=== PATIENT | female | born 1985 | race Caucasian/White ===

== ENCOUNTER 2024-11-21 08:31 | Emergency (ER) | payer BC, SELFPAY ==
--- NOTE | ~2024-11-21 | CT_ITS ---
EXAMINATION: CT brain wo con DATE: 11/21/2024 10:32 INDICATION: Headache. TECHNIQUE: Computed tomography (CT) of the head was performed without intravenous contrast. The mA wa s adjusted according to patient size. Iterative reconstruction technique was employed. The dose-lengt h product was 605.33 mGy-cm. COMPARISON: None FINDINGS: There is no intracranial hemorrhage, acute infarction, or abnormal intracranial mass lesion . The ventricles are normal in size. The orbits are normal. The paranasal sinuses are clear. The mast oid air cells are normal. IMPRESSION: 1. Normal brain. Reviewed, dictated and finalized at location A. M CONDITIONER OPERATOR IMPRESSION: 1. Normal brain.
[2024-11-21 08:44] VITALS: BP 162/90; PULSE 69; RESP 12; TEMP 36.6; O2SAT 100
--- OUTSIDE RECORDS SUMMARY | 2024-11-21 08:49 | XMS_ITS | Patient Health Summary ---
Author Organization [facility] Address [address] [place] [address] Care Team Providers Care Oil Painter Name Role Phone Kathryn Redmond MD Primary Care Provider [phone] Note from [facility],non-owned Affiliates and Associated Physician Practices is amultiple site organization consisting of ambulatory clinics and hospital sitesin [place], [place], [place] and [place]. This disclosure is being madepursuant to the Care Everywhere program and may not contain all information available regarding this patient. Last updated 18.[facility] Allergies * Sulfa Drugs(Urticaria) Medications * Be aware that medications may not be up to date on this document. Alwaysverify current medications with the patient. * NIFEdipine CR 24hr (ADALAT CC) 30 MG tablet(Started 04/24/2014) Take 1 Tab by mouth once daily. Take on an empty stomach. 5 refills left * escitalopram (LEXAPRO) 20 MG tablet Take 20 mg by mouth once daily Active Problems Problem Noted Date Diagnosed Date 08/04/2017 Elevated blood pressure affe cting in third trimester, antepartum 08/02/2017 Maternal chronic hypertension 04/22/2014 Left hydronephrosis 04/22/2014 Loss or of child 04/22/2014 Hx of multiple organ failure 04/22/2014 Obesity complicating 04/22/2014 Supervision of high-risk 02/05/2014 History of pre-eclampsia in prior , currently 02/05/2014 History of delivery, currently 02/05/2014 S/P section Maternal obesity, delivered, current hospitaliza tion Hypertension in , preeclampsia, deliver ed Resolved Problems Problem Noted Date Diagnosed Date Resolved Date Threatened premature labor, antepartum 07/30/2009 04/22/2014 Immunizations * INFLUENZA VACCINE(Given 06/18/2017) * TDAP (7yrs+)(Given 06/18/2017) Social History Tobacco Use Types Packs/Day Years Used Date Smoking Tobacco: Never Smokeless Tobacco: Never Tobacco Cessation:Counseling Given: No Alcohol Use Standard Drinks/Week Comments No 0 (1 standard drink = 0.6 oz pur e alcohol) Sex and Gender Information Value Date Recorded Sex Assigned at Not on file Gender Identity Not on file Sexual Orientation Not on file Last Filed Vital Signs Vital Sign Reading Time Taken Comments Blood Pressure 120/80 03/13/2019 11:22 AM CDT Pulse 88 03/13/2019 11:22 AM CDT Temperature 37.3 C (99.2 F) 03/13/2019 11:22 AM CDT Respiratory Rate 16 03/13/2019 11:22 AM CDT Oxygen Saturation 97% 03/13/2019 11:22 AM CDT Inhaled Oxygen Concentration - - Weight 98.9 kg (218 lb) 03/13/2019 11:22 AM CDT Height 160 cm (5' 3 ) 03/13/2019 11:22 AM CDT Body Mass Index 38.62 03/13/2019 11:22 AM CDT Procedures * STREP A SCREEN - POINT OF CARE (AMB) STL(Performed 03/13/2019) Performed for Strep throat * IMAGING/RADIOLOGY/XRAY RESULTS ORDER(Performed 08/07/2017) * GLUCOSE - POINT OF CARE(Performed 08/06/2017) * GLUCOSE - POINT OF CARE(Performed 08/05/2017) * GLUCOSE - POINT OF CARE(Performed 08/05/2017) * CBC W AUTO DIFFERENTIAL(Performed 08/05/2017) * NEURAXIAL BLOCK(Performed 08/04/2017) * BLOOD GASES CORD ROSALIO (ISTAT)(Performed 08/04/2017) * BLOOD GASES CORD ART (ISTAT)(Performed 08/04/2017) * PATHOLOGY TISSUE EXAM (STL)(Performed 08/04/2017) Performed for Diagnosis unknown * GLUCOSE - POINT OF CARE(Performed 08/04/2017) * TYPE + SCREEN PANEL(Performed 08/04/2017) * COMPREHENSIVE METABOLIC PANEL(Performed 08/04/2017) * CBC W AUTO DIFFERENTIAL(Performed 08/04/2017) * GLUCOSE - POINT OF CARE(Performed 08/04/2017) * CULTURE STREP B(Performed 08/04/2017) * URINALYSIS - POINT OF CARE (AMB) SLU(Performed 08/04/2017) * NON-STRESS TEST(Performed 08/02/2017) Performed for Elevated blood pressure affecting in third trimester, antepartum ([facility]) * URINE MICROSCOPIC ONLY REFLEX TO CULTURE(Performed 08/02/2017) Performed for Elevated blood pressure affecting in third trimester, antepartum ([facility]) * COMPREHENSIVE METABOLIC PANEL(Performed 08/02/2017) Performed for Elevated blood pressure affecting in third trimester, antepartum ([facility]) * CBC W AUTO DIFFERENTIAL(Performed 08/02/2017) Performed for Elevated blood pressure affecting in third trimester, antepartum ([facility]) * URINALYSIS REFLEX MICROSCOPIC REFLEX CULTURE(Performed 08/02/2017) Performed for Elevated blood pressure affecting in third trimester, antepartum ([facility]) * PROTEIN CREATININE RATIO URINE RANDOM PNL(Performed 08/02/2017) Performed for Elevated blood pressure affecting in third trimester, antepartum ([facility]) * CULTURE URINE(Performed 08/02/2017) Performed for Elevated blood pressure affecting in third trimester, antepartum ([facility]) * CULTURE URINE(Performed 07/24/2017) * CBC W AUTO DIFFERENTIAL(Performed 07/24/2017) * COMPREHENSIVE METABOLIC PANEL(Performed 07/24/2017) * URIC ACID BLOOD(Performed 07/24/2017) * URINALYSIS - POINT OF CARE (AMB) SLU(Performed 07/24/2017) * CBC W AUTO DIFFERENTIAL(Performed 07/11/2017) * URINALYSIS - POINT OF CARE (AMB) SLU(Performed 07/11/2017) * URINALYSIS - POINT OF CARE (AMB) SLU(Performed 06/27/2017) * URINALYSIS - POINT OF CARE (AMB) SLU(Performed 06/13/2017) * URINALYSIS - POINT OF CARE (AMB) SLU(Performed 05/19/2017) * NONSTRESS TEST(Performed 05/15/2017) * URINALYSIS REFLEX MICROSCOPIC REFLEX CULTURE(Performed 05/14/2017) Performed for Supervision of high-risk , third trimester ([facility]) * GLUCOSE TOLERANCE TEST 4 SPECIMENS(Performed 04/25/2017) * URINALYSIS - POINT OF CARE (AMB) SLU(Performed 04/21/2017) * HEMOGLOBIN A1C(Performed 04/14/2017) * GLUCOSE CHALLENGE(Performed 04/14/2017) * URINALYSIS - POINT OF CARE (AMB) SLU(Performed 03/22/2017) * PROTEIN CREATININE RATIO URINE TIMED PNL(Performed 02/23/2017) * CREATININE CLEARANCE URINE TIMED + BLOOD(Performed 02/23/2017) * TSH+FREE T4 PANEL(Performed 02/23/2017) * COMPREHENSIVE METABOLIC PANEL(Performed 02/23/2017) * PROFILE I W/ HBSAG(Performed 02/23/2017) * HIV-1 HIV-2 ANTIGEN/ANTIBODY(Performed 02/23/2017) * CHLAMYDIA+GC MAMI PAP VIAL(Performed 02/22/2017) * URINALYSIS - POINT OF CARE (AMB) SLU(Performed 02/21/2017) * PROLACTIN(Performed 09/16/2016) * PAP IMAGE-GUIDED W HPV(Performed 09/16/2016) * PATHOLOGY/GENETICS HISTORICAL-ONBASE(Performed 09/16/2016) * IMAGING/RADIOLOGY/XRAY RESULTS ORDER(Performed 02/28/2015) * HCG URINE QUALITATIVE - POCT (IP) [facility]H(Performed 06/18/2014) * IMAGING/RADIOLOGY/XRAY RESULTS ORDER(Performed 05/10/2014) * HGB HCT PANEL(Performed 05/08/2014) * BLOOD GASES CORD ART (ISTAT)(Performed 05/07/2014) * PATHOLOGY TISSUE EXAM (STL)(Performed 05/07/2014) Performed for Supervision of high-risk , third trimester (HCC), History of pre-eclampsia in prior , currently , third trimester (HCC), Maternal chronic hypertension, unspecified trimester (HCC), Left hydronephrosis, Loss or of child, Hx of multiple organ failure, Obesity complicating ([facility]) * NEURAXIAL BLOCK(Performed 05/07/2014) * TYPE + SCREEN PANEL(Performed 05/06/2014) * URIC ACID BLOOD(Performed 05/06/2014) * LDH BLOOD(Performed 05/06/2014) * COMPREHENSIVE METABOLIC PANEL(Performed 05/06/2014) * CBC W AUTO DIFFERENTIAL(Performed 05/06/2014) * URINALYSIS - POINT OF CARE (AMB) SLU(Performed 05/06/2014) * GLUCOSE PROTEIN KETONE URINE - POINT OF CAR(Performed 05/01/2014) * CULTURE STREP B(Performed 04/29/2014) * URINALYSIS - POINT OF CARE (AMB) SLU(Performed 04/29/2014) * TYPE + SCREEN PANEL(Performed 04/28/2014) * LDH BLOOD(Performed 04/28/2014) Performed for Supervision of high-risk , third trimester ([facility]) * URIC ACID BLOOD(Performed 04/28/2014) Performed for Supervision of high-risk , third trimester ([facility]) * COMPREHENSIVE METABOLIC PANEL(Performed 04/28/2014) Performed for Supervision of high-risk , third trimester ([facility]) * CBC W AUTO DIFFERENTIAL(Performed 04/28/2014) Performed for Supervision of high-risk , third trimester ([facility]) * PROTEIN CREATININE RATIO URINE RANDOM PNL(Performed 04/28/2014) Performed for Supervision of high-risk , third trimester ([facility]) * GLUCOSE PROTEIN KETONE URINE - POINT OF CAR(Performed 04/27/2014) * URINALYSIS REFLEX MICROSCOPIC REFLEX CULTURE(Performed 04/27/2014) Performed for Supervision of high-risk , third trimester ([facility]) * CULTURE URINE(Performed 04/27/2014) Performed for Supervision of high-risk , third trimester ([facility]) * LAB RESULTS ORDER(Performed 04/25/2014) * LAB RESULTS ORDER(Performed 04/25/2014) * CREATININE CLEARANCE URINE TIMED + BLOOD(Performed 04/23/2014) Performed for Supervision of high-risk , third trimester ([facility]) * CREATININE URINE TIMED(Performed 04/23/2014) Performed for Supervision of high-risk , third trimester ([facility]) * PROTEIN URINE TIMED QUANTITATIVE(Performed 04/23/2014) Performed for Supervision of high-risk , third trimester ([facility]) * PROTEIN CREATININE RATIO URINE TIMED PNL(Performed 04/23/2014) Performed for Supervision of high-risk , third trimester ([facility]) * SONOGRAM - COMPLETE(Performed 04/23/2014) * URINE MICROSCOPIC ONLY REFLEX TO CULTURE(Performed 04/22/2014) Performed for Supervision of high-risk , third trimester ([facility]) * URINALYSIS REFLEX MICROSCOPIC REFLEX CULTURE(Performed 04/22/2014) Performed for Supervision of high-risk , third trimester ([facility]) * CULTURE URINE(Performed 04/22/2014) Performed for Supervision of high-risk , third trimester ([facility]) * TYPE + SCREEN PANEL(Performed 04/22/2014) * URIC ACID BLOOD(Performed 04/22/2014) Performed for Supervision of high-risk , third trimester ([facility]) * LDH BLOOD(Performed 04/22/2014) Performed for Supervision of high-risk , third trimester ([facility]) * COMPREHENSIVE METABOLIC PANEL(Performed 04/22/2014) Performed for Supervision of high-risk , third trimester ([facility]) * CBC W AUTO DIFFERENTIAL(Performed 04/22/2014) Performed for Supervision of high-risk , third trimester ([facility]) * URINALYSIS - POINT OF CARE (AMB) SLU(Performed 04/22/2014) * URINALYSIS REFLEX MICROSCOPIC REFLEX CULTURE(Performed 04/19/2014) Performed for History of pre-eclampsia in prior , currently , third trimester ([facility]) * CULTURE URINE(Performed 04/19/2014) Performed for History of pre-eclampsia in prior , currently , third trimester ([facility]) * GLUCOSE PROTEIN KETONE URINE - POINT OF CAR(Performed 04/19/2014) Performed for History of pre-eclampsia in prior , currently , third trimester ([facility]) * PROTEIN CREATININE RATIO URINE RANDOM PNL(Performed 04/19/2014) Performed for History of pre-eclampsia in prior , currently , third trimester ([facility]) * LDH BLOOD(Performed 04/19/2014) Performed for History of pre-eclampsia in prior , currently , third trimester ([facility]) * URIC ACID BLOOD(Performed 04/19/2014) Performed for History of pre-eclampsia in prior , currently , third trimester ([facility]) * COMPREHENSIVE METABOLIC PANEL(Performed 04/19/2014) Performed for History of pre-eclampsia in prior , currently , third trimester ([facility]) * CBC W AUTO DIFFERENTIAL(Performed 04/19/2014) Performed for History of pre-eclampsia in prior , currently , third trimester ([facility]) * GLUCOSE PROTEIN KETONE URINE - POINT OF CAR(Performed 04/19/2014) Performed for Hypertension * PROTEIN CREATININE RATIO URINE TIMED PNL(Performed 04/18/2014) * COMPREHENSIVE METABOLIC PANEL(Performed 04/18/2014) * CBC W AUTO DIFFERENTIAL(Performed 04/18/2014) * URIC ACID BLOOD(Performed 04/18/2014) * CREATININE CLEARANCE URINE TIMED + BLOOD(Performed 04/18/2014) * URINALYSIS - POINT OF CARE (AMB) SLU(Performed 04/15/2014) * URINALYSIS - POINT OF CARE (AMB) SLU(Performed 04/08/2014) * URINALYSIS - POINT OF CARE (AMB) SLU(Performed 03/25/2014) * URINALYSIS - POINT OF CARE (AMB) SLU(Performed 03/11/2014) * CBC W AUTO DIFFERENTIAL(Performed 02/25/2014) * GLUCOSE CHALLENGE(Performed 02/25/2014) * URINALYSIS - POINT OF CARE (AMB) SLU(Performed 02/25/2014) * URINALYSIS - POINT OF CARE (AMB) SLU(Performed 02/11/2014) * LDH BLOOD(Performed 02/05/2014) Performed for Hypertension * URIC ACID BLOOD(Performed 02/05/2014) Performed for Hypertension * COMPREHENSIVE METABOLIC PANEL(Performed 02/05/2014) Performed for Hypertension * CBC W AUTO DIFFERENTIAL(Performed 02/05/2014) Performed for Hypertension * URINALYSIS REFLEX MICROSCOPIC REFLEX CULTURE(Performed 02/05/2014) Performed for Hypertension * PROTEIN CREATININE RATIO URINE RANDOM PNL(Performed 02/05/2014) Performed for Hypertension * CULTURE URINE(Performed 02/05/2014) Performed for Hypertension * URINALYSIS - POINT OF CARE (AMB) SLU(Performed 12/31/2013) * URINALYSIS - POINT OF CARE (AMB) SLU(Performed 12/17/2013) * GLUCOSE CHALLENGE(Performed 12/13/2013) * URINALYSIS - POINT OF CARE (AMB) SLU(Performed 12/06/2013) * COMPREHENSIVE METABOLIC PANEL(Performed 12/02/2013) * PROTEIN CREATININE RATIO URINE TIMED PNL(Performed 12/02/2013) * HIV-1 HIV-2 ANTIBODIES W RFLX REFLEXED(Performed 12/02/2013) * PROFILE I W/ HBSAG(Performed 12/02/2013) * CREATININE URINE TIMED(Performed 12/02/2013) * IMAGING/RADIOLOGY/XRAY RESULTS ORDER(Performed 09/04/2009) * LAB RESULTS ORDER(Performed 08/05/2009) * CBC W AUTO DIFFERENTIAL(Performed 08/01/2009) Performed for [facility] * GROSS + MICRO EXAM(Performed 07/31/2009) * GROSS + MICRO EXAM(Performed 07/31/2009) Performed for [facility] * GLUCOSE FLUID(Performed 07/30/2009) * LS RATIO AMNIOTIC FLUID(Performed 07/30/2009) * LUNG MATURITY(Performed 07/30/2009) * CULTURE FLUID(Performed 07/30/2009) Performed for [facility] * CULTURE ANAEROBE(Performed 07/30/2009) Performed for [facility] * DRUG SCREEN URINE TRIAGE PANEL(Performed 07/29/2009) Performed for [facility] * CULTURE URINE(Performed 07/29/2009) Performed for [facility] * URINALYSIS REFLEX TO MICROSCOPIC NO CULTURE(Performed 07/29/2009) Performed for [facility] * CREATININE CLEARANCE URINE TIMED + BLOOD(Performed 07/29/2009) Performed for [facility] * PROTEIN URINE TIMED QUANTITATIVE(Performed 07/29/2009) Performed for [facility] * TYPE + SCREEN PANEL(Performed 07/29/2009) Performed for [facility] * CHLAMYDIA + GC AMPLIFIED PROBE(Performed 07/29/2009) Performed for [facility] * CULTURE STREP B(Performed 07/29/2009) Performed for [facility] * URIC ACID BLOOD(Performed 07/29/2009) Performed for [facility] * LDH BLOOD(Performed 07/29/2009) Performed for [facility] * CBC W AUTO DIFFERENTIAL(Performed 07/29/2009) Performed for [facility] * COMPREHENSIVE METABOLIC PANEL(Performed 07/29/2009) Performed for [facility] * SECTION (EMERGENCY) Performed for Breech presentation Results * (ABNORMAL) STREP A SCREEN (03/13/2019) Strep A Rapid POCT Positive(A) Negative Strep A Internal Control Present Lot # [id number] Expiration Date 08/17/20 Throat ENTIRE THROAT (SURFACE REGION OF NECK) / Unknown 03/13/2019 Yu Blackmon PROTOTYPE SEWER-SANDWICH MACHINE OPERATOR LAB - POINT OF CA RE ORDERABLES * IMAGING/RADIOLOGY/XRAY RESULTS ORDER (08/07/2017 11:11 PM AUTOMOTIVE SERVICE MANAGER) Only the most recent of4 resultswithin the time period is included. Anatomical Region Laterality Modality Other Narrative 08/07/2017 11:11 PM AUTOMOTIVE SERVICE MANAGER Ordered by an unspecified provider. Scanned Document IMAGING * GLUCOSE - POINT OF CARE (08/06/2017 8:14 AM AUTOMOTIVE SERVICE MANAGER) Only the most recent of5 resultswithin the time period is included. [facility] Glucose WB/POC 76 70 - 106 mg/dL 08/06/2017 11:[address] [facility] Blood BLOOD SPECIMEN / Unknown 08/06/2017 8:14 AM AUTOMOTIVE SERVICE MANAGER 08/06/2017 11:04 AM AUTOMOTIVE SERVICE MANAGER Sanjeev Diaz MD LAB - POINT OF CARE ORDERABLES [facility] [address] [place] [address] * (ABNORMAL) CBC W AUTO DIFFERENTIAL (08/05/2017 5:45 AM AUTOMOTIVE SERVICE MANAGER) Only the most recent of14 resultswithin the time period is included. [facility] WBC 9.2 4.4 - 10.7 x10E9/L 08/05/2017 6:[address] [facility] WBC Corrected x10E9/L 08/05/2017 6:[address] [facility] RBC 3.11(L) 3.80 - 5.20 x10E12/L 08/05/2017 6:[address] [facility] Hemoglobin 9.4(L) 12.0 - 15.6 gm/dL 08/05/2017 6:[address] [facility] Hematocrit 27.5(L) 35.9 - 45.5 % 08/05/2017 6:[address] [facility] MCV 88.4 80.7 - 98.3 fl 08/05/2017 6:[address] [facility] MCH 30.2 26.7 - 34.0 pg 08/05/2017 6:[address] [facility] MCHC 34.2 30.8 - 35.9 gm/dL 08/05/2017 6:[address] [facility] Platelet Count 168 153 - 416 x10E9/L 08/05/2017 6:[address] [facility] RDW-CV 14.4 12.1 - 14.9 % 08/05/2017 6:[address] [facility] MPV 11.1 9.4 - 12.9 fl 08/05/2017 6:[address] [facility] Neutrophils % 69.8 44.0 - 73.0 % 08/05/2017 6:[address] [facility] Lymphocytes % 20.8 20.0 - 43.0 % 08/05/2017 6:[address] [facility] Monocytes % 6.4 5.0 - 13.0 % 08/05/2017 6:[address] [facility] Eosinophils % 2.3 0.0 - 6.0 % 08/05/2017 6:[address] [facility] Basophils % 0.3 0.0 - 2.0 % 08/05/2017 6:[address] [facility] Immature Granulocytes 0.4 0 - 1 % 08/05/2017 6:[address] [facility] Neutrophil Absolute 6.38 2.01 - 7.14 x10E9/L 08/05/2017 6:[address] [facility] Lymphocytes Absolute 1.90 1.07 - 3.94 x10E9/L 08/05/2017 6:[address] [facility] Monocytes Absolute 0.59 0.26 - 1.07 x10E9/L 08/05/2017 6:[address] [facility] Eosinophils Absolute 0.21 0 - 0.47 x10E9/L 08/05/2017 6:[address] [facility] Basophils Absolute 0.03 0 - 0.08 x10E9/L 08/05/2017 6:[address] [facility] Immature Granulocytes Absolute 0.04 0.00 - 0.06 x10E9/L 08/05/2017 6:[address] [facility] nRBC Auto 0 /100 WBC 08/05/2017 6:[address] [facility] Blood BLOOD SPECIMEN / Unknown Lab Venipuncture / Unknown 08/05/2017 5:45 AM AUTOMOTIVE SERVICE MANAGER 08/05/2017 6:03 AM AUTOMOTIVE SERVICE MANAGER Edward Taveras MD LAB - HEMATOLOGY ORD ERABLES [facility] [address] [place] [address] * NEURAXIAL BLOCK (08/04/2017 10:10 PM AUTOMOTIVE SERVICE MANAGER) Narrative Macario Woodward DO - 08/04/2017 10:10 PM AUTOMOTIVE SERVICE MANAGER Ricky Ybarra, PROTOTYPE SEWER-CUSTOMER SALES SPECIALIST 08/04/2017 8:38 PM Neuraxial Block Note Pre-Procedure: Patient Location: OB Indications: surgical anesthesia Pre-Anesthetic Checklist: Patient identified, IV Checked, Risks and benefits discussed, Surgical consent verified, Monitors and equipment, Site examined, Pre-op evaluation done, Time-out performed, Informed consent obtained, Questions answered/anesthesia questions answered and Allergies reviewed Anticoagulation/ Anti-thrombosis status confirmed? Yes Monitors: BP and continuous pluse ox Patient Condition: awake Patient Position: sitting Procedure: Block Type: Spinal Prep: Betadine Sterile Field: mask, cap/hat, sterile established and sterile gloves Approach: Midline Skin localized with: lidocaine 1%, 3 mL Spinal Block: Needle Type: pencil-point Needle Gauge: 25 Needle Length: 90 mm Placement Site: L3-4 Number of Attempts: 1 CSF: aspiration during injection Spinal Local Anesthetic: Bupivacaine: 0.75% in dextrose 1.6 mL Spinal Additive: PF Morphine: 0.1 mL Fentanyl: 0.1 mL Degree of difficulty: none Procedure Tolerance: tolerated well Position post procedure: left uterine displacement Vitals monitored and stable throughout. See Anesthesia record for details.. Start Time: 08/04/2017 8:16 PM End Time: 08/04/2017 8:21 PM Total Time: 5 Staff: Anesthesia Provider: RICKY YBARRA - performed the procedure Macario Woodward DO GENERAL ANESTHESIA O RDERABLES * (ABNORMAL) BLOOD GASES CORD ROSALIO (ISTAT) (08/04/2017 8:53 PM AUTOMOTIVE SERVICE MANAGER) pH Cord Venous POCT 7.36 7.28 - 7.40 pH 08/04/2017 8:58 PM AUTOMOTIVE SERVICE MANAGER [facility] pCO2 Cord Venous POCT 41 35 - 45 mmHg 08/04/2017 8:58 PM AUTOMOTIVE SERVICE MANAGER [facility] pO2 Cord Venous POCT 19(L) 22 - 33 mmHg 08/04/2017 8:[address] [facility] HCO3 Cord Arterial POCT 23 22 - 24 mmol/L 08/04/2017 8:58 PM AUTOMOTIVE SERVICE MANAGER [facility] BE Cord Venous POCT Calc -2 -6.4 - 1.6 mmol/L 08/04/2017 8:[address] [facility] TCO2 Cord Venous POCT 24 22 - 30 mmol/L 08/04/2017 8:58 PM AUTOMOTIVE SERVICE MANAGER [facility] O2 Saturation % Cord Venous Calc POCT 27 % 08/04/2017 8:58 PM AUTOMOTIVE SERVICE MANAGER [facility] Site CORD ROSALIO 08/04/2017 8:58 PM AUTOMOTIVE SERVICE MANAGER [facility] Sample iSTAT CORD V 08/04/2017 8:58 PM AUTOMOTIVE SERVICE MANAGER [facility] Blood CORD BLOOD SPECIMEN / Unknown 08/04/2017 8:53 PM AUTOMOTIVE SERVICE MANAGER 08/04/2017 8:58 PM AUTOMOTIVE SERVICE MANAGER Sanjeev Diaz MD LAB - POINT OF CARE ORDERABLES [facility] [address] [place] [address] * (ABNORMAL) BLOOD GASES CORD ART (ISTAT) (08/04/2017 8:49 PM AUTOMOTIVE SERVICE MANAGER) Only the most recent of2 resultswithin the time period is included. pH Cord Arterial POCT 7.26 7.20 - 7.34 pH 08/04/2017 8:58 PM AUTOMOTIVE SERVICE MANAGER [facility] pCO2 Cord Arterial POCT 54.2 45 - 55 mmHg 08/04/2017 8:[address] [facility] pO2 Cord Arterial POCT 11(L) 12 - 25 mmHg 08/04/2017 8:[address] [facility] HCO3 Cord Arterial POCT 24.5(H) 22 - 24 mmol/L 08/04/2017 8:[address] [facility] BE Cord Arterial POCT -3(L) -2.9 - 8.3 mmol/L 08/04/2017 8:[address] [facility] TCO2 Cord Arterial POCT 26 mmol/L 08/04/2017 8:[address] [facility] O2 Saturation Cord Art % Calc POCT 9 % 08/04/2017 8:58 PM AUTOMOTIVE SERVICE MANAGER [facility] Site CORD ART 08/04/2017 8:[address] [facility] Sample iSTAT CORD A 08/04/2017 8:[address] [facility] Blood CORD BLOOD SPECIMEN / Unknown 08/04/2017 8:49 PM AUTOMOTIVE SERVICE MANAGER 08/04/2017 8:58 PM AUTOMOTIVE SERVICE MANAGER Sanjeev Diaz MD LAB - POINT OF CARE ORDERABLES [facility] [address] [place] [address] * GROSS + MICRO EXAM (STL) (08/04/2017 8:46 PM AUTOMOTIVE SERVICE MANAGER) Only the most recent of2 resultswithin the time period is included. Case Report Surgical Pathology Report Case: [id number] Authorizing Provider: Maty Barrera MD Collected: 08/04/2017 08:46 PM Ordering Location: [facility] Received: 08/07/2017 08:17 AM Pathologist: Darvin Maurice MD Specimen: Placenta 08/09/2017 10:41 AM AUTOMOTIVE SERVICE MANAGER [facility] Final Diagnosis 1. Placenta, delivery: -- Third trimester placenta -- Focal mild chronic villitis -- No evidence of chorioamnionitis -- 3-vessel umbilical cord with no evidence of vasculitis or funisitis SSD 08/09/2017 10:41 AM AUTOMOTIVE SERVICE MANAGER [facility] Gross Description The specimen is received fixed in formalin in 1 container labeled with the patient's name, Arianna Goode, and placenta and consists of a 12.5 x 12.0 x 2.6 cm placenta with intact succenturiate lobe measuring 14.0 x 10.0 x 2.0 cm. Some connecting membranes connect the 2 separate lobes. Multiple vessels stretch across these membranes from the predominant placental disc over to the succenturiate lobe for a length of 6.5 cm. The specimen has an attached umbilical cord and attached membranes. The umbilical cord has a marginal insertion, is bolaños-white and glistening, and measures 32.8 cm in length x up to 1.8 cm in diameter. The cord is trivascular and has no true knots. The membranes are pink-bolaños and translucent and insert marginally. The surface is blue-driver and glistening with a normal arborized vascular pattern. The placental weight after trimming is 420 grams. The maternal surface is covered by lobular and partially disrupted purple-pink cotyledons. A 6.0 x 3.7 x 1.2 cm portion of detached cotyledons is identified free-floating in the specimen container. The vessels stretching across the membranes are intact. Cut surface reveals soft, purple-pink placental parenchyma. Focused Factory Manager sections are submitted as follows: A1: Umbilical cord, membranes, and membranes with vessels A2/A3: Placenta MR/arm 08/09/2017 10:[address] [facility] Microscopic Description Placental disc, membrane, and umbilical cord examined. 08/09/2017 10:[address] [facility] Disclaimer All histochemical and/or immunohistochemical results are interpreted with controls that demonstrate appropriate staining reactions before reporting results. Note on use of immunocytochemistry reagents: This test was developed and its performance characteristic determined by [facility], Department of Laboratory Medicine. It has not been cleared or approved by the U.S. Food and Drug Administration (FDA). The FDA has determined that such clearance or approval is not necessary. The test is used for clinical purpose. It should not be regarded as investigational or for research. This laboratory is certified to perform high complexity testing. 08/09/2017 10:[address] [facility] Embedded Images 08/09/2017 10:[address] [facility] Pathology/Cytolo gy ENTIRE PLACENTA / Unknown 08/04/2017 8:46 PM AUTOMOTIVE SERVICE MANAGER 08/07/2017 8:17 AM AUTOMOTIVE SERVICE MANAGER Maty Barrera MD LAB - PATHOLOGY/CYTO LOGY ORDERABLES [facility] [address] [place] [address] * TYPE + SCREEN PANEL (08/04/2017 5:23 PM AUTOMOTIVE SERVICE MANAGER) Only the most recent of5 resultswithin the time period is included. ABO O 08/04/2017 6:[address] [facility] Rh Type Positive 08/04/2017 6:[address] [facility] Comment:History check perfor med. No retype required. Antibody Screen Negative 08/04/2017 6:[address] [facility] Blood Bank BLOOD SPECIMEN / Unknown Venipuncture / Unknown 08/04/2017 5:23 PM AUTOMOTIVE SERVICE MANAGER 08/04/2017 5:33 PM AUTOMOTIVE SERVICE MANAGER Laurel Joy MD LAB - BLOOD BANK ORD ERABLES [facility] [address] [place] [address], [facility] * (ABNORMAL) COMPREHENSIVE METABOLIC PANEL (08/04/2017 5:23 PM AUTOMOTIVE SERVICE MANAGER) Only the most recent of12 resultswithin the time period is included. Glucose 97 74 - 106 mg/dL 08/04/2017 6:[address] [facility] Sodium 139 136 - 145 mmol/L 08/04/2017 6:[address] [facility] Potassium 3.5 3.5 - 5.1 mmol/L 08/04/2017 6:[address] [facility] Chloride 107 98 - 107 mmol/L 08/04/2017 6:[address] [facility] CO2 19(L) 22 - 31 mmol/L 08/04/2017 6:[address] [facility] Calcium 9.2 8.5 - 10.1 mg/dL 08/04/2017 6:[address] [facility] Anion Gap 13 8 - 16 mmol/L 08/04/2017 6:[address] [facility] BUN 6(L) 7 - 21 mg/dL 08/04/2017 6:[address] [facility] Creatinine 0.51 0.50 - 1.30 mg/dL 08/04/2017 6:[address] [facility] Alkaline Phosphatase 108 38 - 126 U/L 08/04/2017 6:[address] [facility] ALT 18 13 - 61 U/L 08/04/2017 6:[address] [facility] AST 11 5 - 40 U/L 08/04/2017 6:[address] [facility] Protein Total 6.8 6.4 - 8.2 gm/dL 08/04/2017 6:[address] [facility] Albumin 2.8(L) 3.4 - 5.0 gm/dL 08/04/2017 6:[address] [facility] Bilirubin Total 0.2 0.2 - 1.0 mg/dL 08/04/2017 6:[address] [facility] eGFR by MDRD >60 >60 mL/min/1.7 3m2 08/04/2017 6:[address] [facility] eGFR by MDRD >60 >60 mL/min/1.7 3m2 08/04/2017 6:[address] [facility] Blood BLOOD SPECIMEN / Unknown Venipuncture / Unknown 08/04/2017 5:23 PM AUTOMOTIVE SERVICE MANAGER 08/04/2017 5:33 PM AUTOMOTIVE SERVICE MANAGER Laurel Joy MD LAB - CHEMISTRY [place] Performing Organization Address City/[facility]/ZIP Co de Phone Number [facility] [address] [place] [address] * CULTURE STREP B (08/04/2017 3:50 PM AUTOMOTIVE SERVICE MANAGER) Only the most recent of3 resultswithin the time period is included. Culture SEE NOTE [facility]) Comment: STREPTOCOCCUS, GROUP B CULTURE MICRO NUMBER: [id number] TEST STATUS: FINAL SPECIMEN SOURCE: VAGINA SPECIMEN QUALITY: ADEQUATE RESULT: No group B Streptococcus isolated REPORT COMMENT: SPECIMEN TYPE->VAGINA Test Performed at: [facility] [address] NANCY VERMA MD Vagina 08/04/2017 3:50 PM AUTOMOTIVE SERVICE MANAGER 08/05/2017 2:50 AM AUTOMOTIVE SERVICE MANAGER Narrative [facility]) - 08/07/2017 9:00 AM AUTOMOTIVE SERVICE MANAGER Specimen Type->Vagina Rajiv Kate MD LAB - MICROBIOLOGY O RDERABLES Performing Organization Address [facility] Co de Phone Number [facility]) * URINALYSIS - POINT OF CARE (AMB) U (08/04/2017) Only the most recent of21 resultswithin the time period is included. Glucose UA n [facility] Bilirubin UA POCT n [facility] Ketones UA POCT moderate [facility] Specific [place] UA 1.025 [facility] Blood Urine POCT n [facility] pH UA 5 [facility] Protein UA 30 [facility] Urobilinogen UA n [facility] Nitrite UA n [facility] WBC UA trace [facility] Urine specimen (specimen) 08/04/2017 Rajiv Kate MD LAB - POINT OF CARE ORDERABLES [facility] * NON-STRESS TEST (08/02/2017 4:24 PM AUTOMOTIVE SERVICE MANAGER) Anatomical Region Laterality Modality Other Narrative 08/02/2017 4:24 PM AUTOMOTIVE SERVICE MANAGER Urszula Gonzáles RN 08/02/2017 1:57 PM Name: Arianna Goode Date of : 1985 Today's Date: 08/02/2017 NST RESULTS ([place]) OBJECTIVE FINDINGS , , , BP: 126/78 NST Indication(s): Pre-eclampsia Uterine Irritability: Yes Contractions: Not present OBJECTIVE FINDINGS Movement: Present Monitoring Mode: External Baseline: 145 BPM Variability: Moderate Decelerations: None Accelerations: Yes OTHER INFORMATION Urszula Gonzáles RN Edward DOESANDWICH MACHINE OPERATOR M ORDERABLES * (ABNORMAL) URINALYSIS MICROSCOPIC ONLY W/REFLEX CULTURE (08/02/2017 12:36 PM AUTOMOTIVE SERVICE MANAGER) Only the most recent of2 resultswithin the time period is included. Reflex Status Culture to follow 08/02/2017 12:58 PM AUTOMOTIVE SERVICE MANAGER [facility] RBC UA 11-20(A) 0-5, None Seen # /hpf 08/02/2017 12:58 PM AUTOMOTIVE SERVICE MANAGER [facility] WBC UA 21-50(A) 0-5, None Seen # /hpf 08/02/2017 12:58 PM AUTOMOTIVE SERVICE MANAGER [facility] Bacteria UA 2+(A) None Seen 08/02/2017 12:58 PM AUTOMOTIVE SERVICE MANAGER [facility] Squamous Epithelial Cells 11-20(A) None Seen, 0-2, 3-5 /hpf 08/02/2017 12:58 PM AUTOMOTIVE SERVICE MANAGER [facility] Mucus UA 3+ /LPF 08/02/2017 12:58 PM AUTOMOTIVE SERVICE MANAGER [facility] Urine URINE SPECIMEN OBTAINED BY CLEAN CATCH PROCEDURE / Unknown Collection / Unknown 08/02/2017 12:36 PM AUTOMOTIVE SERVICE MANAGER 08/02/2017 12:41 PM AUTOMOTIVE SERVICE MANAGER Narrative [facility] - 08/02/2017 12:58 PM AUTOMOTIVE SERVICE MANAGER Edward DOESANDWICH MACHINE OPERATOR LAB - URINALYSIS ORDERABLES [facility] [address] [place], [place] [id number] * (ABNORMAL) URINALYSIS ROUTINE W/REFLEX TO CULTURE (08/02/2017 12:36 PM AUTOMOTIVE SERVICE MANAGER) Only the most recent of6 resultswithin the time period is included. Color UA Yellow Straw, Yellow 08/02/2017 12:58 PM AUTOMOTIVE SERVICE MANAGER [facility] Clarity UA Cloudy(A) Clear 08/02/2017 12:58 PM AUTOMOTIVE SERVICE MANAGER [facility] Glucose UA Negative Negative 08/02/2017 12:58 PM AUTOMOTIVE SERVICE MANAGER [facility] Bilirubin UA Negative Negative 08/02/2017 12:[address] [facility] Ketone UA Trace(A) Negative 08/02/2017 12:[address] [facility] Specific [place] UA 1.020 1.005 - 1.030 08/02/2017 12:[address] [facility] Blood UA 2+(A) Negative 08/02/2017 12:[address] [facility] pH UA 6.0 5.0 - 8.0 pH 08/02/2017 12:[address] [facility] Protein UA 1+(A) Negative 08/02/2017 12:[address] [facility] Urobilinogen UA Negative Negative mg/dL 08/02/2017 12:[address] [facility] Nitrite UA Negative Negative 08/02/2017 12:[address] [facility] Leukocyte UA 3+(A) Negative 08/02/2017 12:[address] [facility] Urine Microscopy Urine microscopy to follow 08/02/2017 12:[address] [facility] Reflex Status Culture to follow 08/02/2017 12:[address] [facility] Urine URINE SPECIMEN OBTAINED BY CLEAN CATCH PROCEDURE / Unknown Collection / Unknown 08/02/2017 12:36 PM AUTOMOTIVE SERVICE MANAGER 08/02/2017 12:41 PM AUTOMOTIVE SERVICE MANAGER Narrative [facility] - 08/02/2017 12:58 PM AUTOMOTIVE SERVICE MANAGER Edward WHEELER LAB - URINALYSIS ORDERABLES [facility] [address] [place] [address] * CULTURE URINE (08/02/2017 12:36 PM AUTOMOTIVE SERVICE MANAGER) Only the most recent of7 resultswithin the time period is included. Culture Urine <10,000 CFU/mL urogenital wilbert GARTH 08/03/2017 10:15 AM AUTOMOTIVE SERVICE MANAGER [facility] Urine URINE SPECIMEN OBTAINED BY CLEAN CATCH PROCEDURE / Unknown Collection / Unknown 08/02/2017 12:36 PM AUTOMOTIVE SERVICE MANAGER 08/02/2017 12:41 PM AUTOMOTIVE SERVICE MANAGER Edwardsarah Chong [facility] LAB - MICROBIOLOG Y ORDERABLES Performing Organization Address City/[facility]/ZIP Co de Phone Number [facility] [address] [place], [place] [address] [phone] * PROTEIN CREATININE RATIO URINE RANDOM PNL (08/02/2017 12:36 PM AUTOMOTIVE SERVICE MANAGER) Only the most recent of4 resultswithin the time period is included. Protein Urine 28.9 mg/dL 08/02/2017 1:14 PM AUTOMOTIVE SERVICE MANAGER [facility] Creatinine Urine 150 mg/dL 08/02/2017 1:14 PM AUTOMOTIVE SERVICE MANAGER [facility] Protein/Creatin ine Ratio Urine 0.19 08/02/2017 1:14 PM AUTOMOTIVE SERVICE MANAGER [facility] Urine URINE SPECIMEN OBTAINED BY CLEAN CATCH PROCEDURE / Unknown Collection / Unknown 08/02/2017 12:36 PM AUTOMOTIVE SERVICE MANAGER 08/02/2017 12:41 PM AUTOMOTIVE SERVICE MANAGER Edward Hardwick Castillo [facility] LAB - URINE CHEMI STRY ORDERABLES Performing Organization Address [facility] Co de Phone Number [facility] [address] [place] [address] * URIC ACID BLOOD (07/24/2017 11:49 AM AUTOMOTIVE SERVICE MANAGER) Only the most recent of8 resultswithin the time period is included. Uric acid 5.6 2.5 - 7.0 mg/dL [facility]) Comment: Therapeutic target for gout patients: <6.0 mg/dL Test Performed at: [facility] [address] [place] [address] MATY HSIEH DO,MPH 07/24/2017 11:4 9 AM AUTOMOTIVE SERVICE MANAGER 07/24/2017 11:49 AM AUTOMOTIVE SERVICE MANAGER Lexi Xie MD LAB - CHEMISTRY [place] Performing Organization Address [facility] de Phone Number [facility]) * (ABNORMAL) GLUCOSE TOLERANCE TEST 4 SPECIMENS (04/25/2017 7:28 AM CDT) Time 1 FASTING [facility]) Specimen 1 97 65 - 99 mg/dL [facility] Time 2 1 HOUR [facility] Specimen 2 207(H) mg/dL [facility] TIME 3 2 HOURS [facility] Specimen 3 158 mg/dL [facility] Time 4 3 HOURS [facility]) Specimen 4 100 mg/dL [facility]) Comment See Below [facility]) Comment: [place] Diabetes Association Diagnostic Criteria for Diabetes Mellitus Glucose Value (mg/dL) Interpretation Fasting 1 Hr 2 Hr Tolerance Tolerance --------- --------- --------- Normal <100 Not Established <140 Impaired Fasting 100-125 Impaired Tolerance 140-199 Diabetes >PX=681* >FP=098* * Must be confirmed by testing on a subsequent day. REPORT COMMENT: FASTING:YES Test Performed at: [facility] [address] [place] [address] MATY HSIEH DO,MPH 04/25/2017 7:28 AM CDT 04/25/2017 7:29 AM CDT Kelsey Samaniego MD LAB - CHEMISTRY [place] Performing Organization Address [facility] de Phone Number [facility]) * HEMOGLOBIN A1C (04/14/2017 11:00 AM CDT) Hemoglobin A1c 4.7 <5.7 % of total Hgb [facility]) Comment: For the purpose of screening for the presence of diabetes: <5.7% Consistent with the absence of diabetes 5.7-6.4% Consistent with increased risk for diabetes (prediabetes) > or =6.5% Consistent with diabetes This assay result is consistent with a decreased risk of diabetes. Currently, no consensus exists regarding use of hemoglobin A1c for diagnosis of diabetes in children. According to [place] Diabetes Association (ADA) guidelines, hemoglobin A1c <7.0% represents optimal control in non- diabetic patients. Different metrics may apply to specific patient populations. Standards of Medical Care in Diabetes(ADA). REPORT COMMENT: PREFERRED LAB:->[facility] Test Performed at: [facility] [employer] [id number] [place] [phone] MATY HSIEH DO,MPH 04/14/2017 11:0 0 AM CDT 04/14/2017 11:01 AM CDT Liana Dey MD LAB - CHEMISTR Y ORDERABLES Performing Organization Address [facility] Co de Phone Number [facility]) * (ABNORMAL) GLUCOSE CHALLENGE (04/14/2017 11:00 AM CDT) Only the most recent of3 resultswithin the time period is included. Pathologist [facility] Glucose, 50 gm screen 142(H) <135 mg/dL [facility]) Comment: One hour value of > or = 135 mg/dL indicates the need for a diagnostic 75 g dose 2-hour or 100 g dose 3-hour oral glucose tolerance test; patient fasting is required. Test Performed at: [facility] [address] [place] [phone] MATY HSIEH DO,MPH 04/14/2017 11:0 0 AM CDT 04/14/2017 11:01 AM CDT Liana Dey MD LAB - CHEMISTR Y ORDERABLES Performing Organization Address [facility] Co de Phone Number [facility]) * HIV-1 HIV-2 ANTIGEN/ANTIBODY (02/23/2017 10:03 AM CDT) [facility] HIV Antigen/Antibody 4th Generation NON-REACT CHRISTIAN NON-REACT CHRISTIAN [facility]) Comment: HIV-1 antigen and HIV-1/HIV-2 antibodies were not detected. There is no laboratory evidence of HIV infection. PLEASE NOTE: This information has been disclosed to you from records whose confidentiality may be protected by state law. If your state requires such protection, then the state law prohibits you from making any further disclosure of the information without the specific written consent of the person to whom it pertains, or as otherwise permitted by law. A general authorization for the release of medical or other information is NOT sufficient for this purpose. For additional information please refer to http://[employer]™ Medical/faq/OGR659 (This link is being provided for informational/ educational purposes only.) The performance of this assay has not been clinically validated in patients less than 2 years old. Test Performed at: [employer] [id number] [facility] [place] [address] MATY HSIEH DO,MPH 02/23/2017 10:0 3 AM CDT 02/23/2017 10:03 AM CDT Damien Gandhi MD LAB - HEMATOLOGY ORD LONNIE Performing Organization Address [facility] de Phone Number [facility]) * TSH+FREE T4 PANEL (02/23/2017 10:03 AM CDT) TSH 1.78 mIU/L [facility]) Comment: Reference Range > or = 20 Years 0.40-4.50 Ranges First trimester 0.26-2.66 Second trimester 0.55-2.73 Third trimester 0.43-2.91 T4 Free 1.2 0.8 - 1.8 ng/dL [facility] ([facility]) Comment: Test Performed at: [employer] [facility] [id number] [employer] [facility] [place] [address] MATY HSIEH DO,MPH 02/23/2017 10:0 3 AM CDT 02/23/2017 10:03 AM CDT Damien Gandhi MD LAB - CHEMISTRY [place] Performing Organization Address [facility] Co de Phone Number [facility] * (ABNORMAL) PROFILE I W/ HBSAG (02/23/2017 10:03 AM CDT) Only the most recent of2 resultswithin the time period is included. WBC 9.9 3.8 - 10.8 Thousand /uL [facility]) RBC 3.88 3.80 - 5.10 Million/ uL [facility]) Hemoglobin 11.6(L) 11.7 - 15.5 g/dL [facility]) Hematocrit 33.9(L) 35.0 - 45.0 % [facility]) MCV 87.4 80.0 - 100.0 fL [facility]) MCH 29.9 27.0 - 33.0 pg [facility]) MCHC 34.2 32.0 - 36.0 g/dL [facility]) RDW-CV 13.1 11.0 - 15.0 % [facility]) Platelet 216 140 - 400 Thousand /uL [facility]) MPV 10.1 7.5 - 12.5 fL [facility]) Neutrophils Absolute 6,841 1,500 - 7,800 cells/uL [facility]) Lymphocyte Absolute Manual 2,099 850 - 3,900 cells/uL [facility]) Monocytes Absolute 485 200 - 950 cells/uL [facility]) Eosinophils Absolute 426 15 - 500 cells/uL [facility] Basophil Absolute Manual 50 0 - 200 cells/uL [facility] Neutrophils % 69.1 % [facility] Lymphocytes % 21.2 % [facility]) Monocytes % 4.9 % [facility]) Eosinophils % 4.3 % [facility]) Basophil % 0.5 % [facility]) Antibody Screen NO ANTIBODIES DETECTED [facility]) Comment: Reference range No antibodies detected This assay is a screening test for the detection of red blood cell antibodies. The test is not to be used for pretransfusion screening or for the medical management of an alloimmunized . ABO O [facility]) Rh Type RH(D) POSITIVE [facility]) RPR NON-REACTIVE NON-REAC TIVE [facility]) Hepatitis B Virus Surface Antigen NON-REACTIVE NON-REAC TIVE [facility]) Rubella Antibody Immune Status 4.53 index [facility]) Comment: Index Interpretation ----- <0.90 Not consistent with Immunity 0.90-0.99 Equivocal > or = 1.00 Consistent with Immunity The presence of rubella IgG antibody suggests immunization or past or current infection with rubella virus. Test Performed at: [place] [address] MATY HSIEH DO,MPH 02/23/2017 10:0 3 AM CDT 02/23/2017 10:03 AM CDT Narrative [facility]) - 02/24/2017 4:00 PM CDT Preferred Lab:[facility] Damien Gandhi MD LAB - CHEMISTRY ORDE RABLES Performing Organization Address [facility] Co de Phone Number [facility]) * PROTEIN CREATININE RATIO URINE TIMED PNL (02/23/2017 10:03 AM CDT) Only the most recent of4 resultswithin the time period is included. Creatinine 24 Hour Urine 2.30 0.63 - 2.50 g/24 h [facility]) Protein 24 Hour Urine 63 < OR = 84 mg/g creat [facility]) Protein 24 Hour Urine 144 <150 mg/24 h [facility]) Comment: TOTAL URINE VOLUME: 1200/24 REPORT COMMENT: PREFERRED LAB:->[facility]; HEIGHT (INCHES)->63; WEIGHT (LBS)->25 Test Performed at: [place] [address] MATY HSIEH DO,MPH Urine specimen (specimen) 02/23/2017 10:03 AM CDT 02/23/2017 10:03 AM CDT Damien Gandhi MD LAB - URINE CHEMISTR Y ORDERABLES Performing Organization Address [facility]/ZIP Co de Phone Number [facility]) * (ABNORMAL) CREATININE CLEARANCE URINE TIMED + BLOOD (02/23/2017 10:03 AM CDT) Only the most recent of4 resultswithin the time period is included. Creatinine 0.55 0.50 - 1.10 mg/dL [facility] ([facility]) eGFR non- 126 > OR = 60 mL/min/1.7 3m2 [facility]) eGFR 146 > OR = 60 mL/min/1.7 3m2 [facility]) Creatinine 24 Hour Urine 2.30 0.63 - 2.50 g/24 h [facility]) Body Surface Area 2.13 [facility]) Creatinine Clearance 236(H) 75 - 115 mL/min [facility]) Patient Height 5 ft [facility]) Patient Height (Inches) 3 in [facility]) WEIGHT POUNDS (SLH) 250 [facility]) Comment: Test Performed at: [place] [address] MATY HSIEH DO,MPH Urine specimen (specimen) (Urine, unspecified source) 02/23/2017 10:03 AM CDT 02/23/2017 10:03 AM CDT Narrative [facility]) - 02/24/2017 4:00 PM CDT Height (inches)->63 Weight (lbs)->250 Damien Gandhi MD LAB - URINE CHEMISTR Y ORDERABLES [facility] ([facility]) * CHLAMYDIA+GC MAMI PAP VIAL (02/22/2017 3:00 PM CDT) Chlamydia trachomatis RNA TMA NOT DETECTED NOT DETECTED [facility] ([facility]) Neisseria gonorrhoeae RNA TMA NOT DETECTED NOT DETECTED [facility] ([facility]) See Note [facility] ([facility]) Comment: This test was performed using the APTIMA COMBO2 Assay ([employer] The analytical performance characteristics of this assay, when used to test SurePath specimens have been determined by [facility]. NO COLLECTION DATE RECEIVED. WE HAVE USED THE DATE THE SPECIMEN WAS RECEIVED BY THIS LABORATORY THE COLLECTION DATE. IF THIS IS INCORRECT, PLEASE CONTACT CLIENT SERVICES. PHONE NUMBER: [phone] Test Performed at: [facility] [place] [address] MATY HSIEH DO,MPH Urine specimen (specimen) 02/22/2017 3:00 PM CDT 02/22/2017 5:42 AM CDT Narrative [facility] ([facility]) - 02/22/2017 3:00 PM CDT Specimen Type->Urine Damien Gandhi MD LAB - MICROBIOLOGY O RDERABLES Performing Organization Address City/[facility]/ZIP Co de Phone Number [facility] ([facility]) * PROLACTIN (09/16/2016 2:42 PM AUTOMOTIVE SERVICE MANAGER) Prolactin 10.1 ng/mL [facility] ([facility]) Comment: Reference Range Females Non- 3.0-30.0 10.0-209.0 Postmenopausal 2.0-20.0 REPORT COMMENT: FASTING:NO Test Performed at: [facility] [address] [place] [address] MATY HSIEH DO,MPH Blood specimen (specimen) BLOOD SPECIMEN / Unknown 09/16/2016 2:42 PM AUTOMOTIVE SERVICE MANAGER 09/16/2016 2:42 PM AUTOMOTIVE SERVICE MANAGER Yajaira Don MD LAB - CHEMISTRY [place] Performing Organization Address City/[facility] Co de Phone Number [facility] ([facility]) * PATHOLOGY/GENETICS HISTORICAL-ONBASE (09/16/2016) 09/16/2016 Yajaira Don MD LAB - CHEMISTRY [place] Performing Organization Address [facility] Co de Phone Number [address] * (ABNORMAL) PAP IMAGE-GUIDED LIQUID BASE W HPV (09/16/2016 12:00 AM AUTOMOTIVE SERVICE MANAGER) Pap Image-Guided Liquid-Based with HPV Accession No: [id number] Specimen:Endocervi janusz ThinPrep Slides:1 SPECIMEN ADEQUACY: SATISFACTORY FOR EVALUATION - Endocervical / Transformation Zone Component Present INTERPRETATION: NEGATIVE FOR INTRAEPITHELIAL LESION OR MALIGNANCY - Reactive Cellular Changes NOTE(S): HPV DIRECT - HPV Result to Follow This specimen was evaluated by the ThinPrep Imaging System along with an additional manual rescreening by a financial associate and/or pathologist Initial Evaluation performed by Adelfo BUNCH(ASC). Electronically signed 09/23/2016 Interpretation performed by Arthur Ramos MD. Electronically signed 09/26/2016 (A) [facility] ([place]) Endocervical 09/16/2016 09/21/2016 10:05 AM AUTOMOTIVE SERVICE MANAGER Yajaira Don MD LAB - PATHOLOGY/CYTO LOGY ORDERABLES [facility] ([place]) * HCG URINE QUALITATIVE - POCT (IP) [facility] (06/18/2014) Test Urine neg [facility] Urine specimen (specimen) 06/18/2014 Josh Leyva MD LAB - POINT OF CARE ORDERABLES Performing Organization Address [facility]/ZIP Co de Phone Number [facility] * (ABNORMAL) HGB HCT PANEL (05/08/2014 6:42 AM CDT) Hemoglobin 10.4(L) 12.0 - 15.6 gm/dL 05/08/2014 7:01 AM CDT [facility] Hematocrit 30.5(L) 35.9 - 45.5 % 05/08/2014 7:01 AM CDT [facility] Blood BLOOD SPECIMEN / Unknown Lab Venipuncture / Unknown 05/08/2014 6:42 AM CDT 05/08/2014 6:48 AM CDT Vilma Espinoza MD LAB - HEMATOLOGY ORDERABLES Performing Organization Address City/[facility]/ZIP Co de Phone Number [facility] [address] [place] [address] * NEURAXIAL BLOCK (05/07/2014 4:22 AM CDT) Narrative Lisandra Turner APRN-CRNA - 05/07/2014 4:22 AM CDT JULIO C Bellamy 05/07/2014 4:22 AM NEURAXIAL BLOCK Patient Location: OB Pre Procedure Indication: labor analgesia Anticoagulation /Antithrombosis Status Confirmed: Yes Preanesthetic Checklist: patient identified, IV checked, site marked, risks and benefits discussed, surgical consent verified, monitors and equipment checked, pre-op evaluation done, timeout performed, informed consent obtained and questions answered / anesthesia plan accepted Monitors: BP and Pulse Ox Patient Condition: awake Patient Position: sitting Procedure Block Performed: epidural Prep: Betadine Sterile Field: mask, cap/hat, sterile field established and sterile gloves Approach: midline Skin Numbed with: lidocaine 1% Epidural Needle Type: Tuohy Needle Gauge: 18 Needle Length: 3.5 in Placement Site: L3-L4 Number of Attempts: 1 Loss of Resistance: 9 cm Catheter Length at Skin: 14 cm CSF Aspirated from Catheter: negative Blood Aspirated from Catheter: negative Test Dose: lidocaine 1.5% with 1 200 k epinephrine at 05/07/2014 4:16 AM Local Anesthetic: ropivacaine 0.2% 10 ml Events CSF return negative injection not painful no paresthesia Degree of Difficulty: none Position Post Procedure: left uterine displacement and head of bed elevated 30 degrees Vital signs monitored and stable throughout. See Anesthesia Intraop record for details. Block Start Time: 05/07/2014 4:16 AM Block End Time: 05/07/2014 4:16 AM Block Performed by: Yasmani Turner CRNA Notes: Called to patients room. Epidural placed without complications. Negative heme, Neg, CSF + KAMAR x 1 attempt. Pt getting comfortable Levi Diaz MD GENERAL ANESTHESIA O RDERABLES * LDH BLOOD (05/06/2014 5:07 PM CDT) Only the most recent of6 resultswithin the time period is included. Pathologist [facility] LDH 189 100 - 200 U/L 05/06/2014 5:39 PM CDT [facility] Comment: Blood BLOOD SPECIMEN / Unknown Venipuncture / Unknown 05/06/2014 5:07 PM CDT 05/06/2014 5:19 PM CDT Brittani Escoto MD LAB - CHEMISTRY [place] [facility] [address] [place] [address] * GLUCOSE PROTEIN KETONE URINE - POINT OF CAR (05/01/2014 5:05 PM CDT) Only the most recent of4 resultswithin the time period is included. Glucose UA negative Negative [facility] Protein UA 1+ Negative [facility] Ketone UA negative Negative [facility] QC Verified Yes [facility] POC T TESTING Urine specimen (specimen) URINE / Unknown 05/01/2014 5:05 PM CDT Isma Campbell MD LAB - POINT OF C ARE ORDERABLES Performing Organization Address [facility] de Phone Number [facility] [address] [place] [address], [facility] * LAB RESULTS ORDER (04/25/2014 11:22 PM CDT) Only the most recent of3 resultswithin the time period is included. Provider Unknown LAB - THERAPEUTIC DR COKER MONITORING ORDERABLES * (ABNORMAL) PROTEIN URINE TIMED QUANTITATIVE (04/23/2014 4:45 PM CDT) Only the most recent of2 resultswithin the time period is included. Volume 24 Hour Urine 910 mL 04/23/2014 6:19 PM CDT [facility] Collection Time Hours 24 hrs 04/23/2014 6:19 PM CDT [facility] Protein 24 Hour Urine 292(H) 42 - 225 mg/24hr 04/23/2014 6:19 PM CDT [facility] Protein Urine 32.1 mg/dL 04/23/2014 6:19 PM CDT [facility] Urine TIMED URINE SPECIMEN / Unknown Collection / Unknown 04/23/2014 4:45 PM CDT 04/23/2014 6:01 PM CDT Eric Terrell MD LAB - URINE CHEMISTR Y ORDERABLES Performing Organization Address City/[facility] Co de Phone Number [facility] [address] [place] [address] * CREATININE URINE TIMED (04/23/2014 4:45 PM CDT) Only the most recent of2 resultswithin the time period is included. Volume 24 Hour Urine 910 mL 04/23/2014 6:19 PM CDT [facility] Collection Time Hours 24 hrs 04/23/2014 6:19 PM CDT [facility] Creatinine Urine 191.12 mg/dL 04/23/2014 6:19 PM CDT [facility] Creatinine 24 Hour Urine 1,739 800 - 1,800 mg/24hr 04/23/2014 6:19 PM CDT [facility] Urine TIMED URINE SPECIMEN / Unknown Collection / Unknown 04/23/2014 4:45 PM CDT 04/23/2014 6:01 PM CDT Eric Terrell MD LAB - URINE CHEMISTR Y ORDERABLES [facility] [address] [place] [address] * SONOGRAM - COMPLETE (04/23/2014 1:51 PM CDT) Anatomical Region Laterality Modality Other 04/23/2014 1:51 PM CDT Narrative 04/23/2014 4:[address] [facility] PHONE: FAX: Pat. Name: ARIANNA GOODE Pat. No: [id number] Study Date: 04/23/2014 1:51pm , Age: 11 1985, 28 LMP: Unknown GA Selected: 34w2d (From Known E) GONZALO: 06/02/2014 Referring MD: DAMIEN GANDHI MD Supervisor Blood: Dianne Roland RDMS Hist/Ind: Chronic Hypertension Pre Eclampsia Heart Rate: 139 bpm Amniotic Fluid Index: 11.3cm (08.0-24.8) DOPPLER Umbilical - Mid Cord S/D 2.14 PI 0.77 CLINICAL SUMMARY Study Number: 1 (BOG) A loyola fetus is identified in cephalic presentation. The placenta is posterior. The amniotic fluid volume is within normal limits. No major malformations are seen. DOPPLER STUDIES: The umbilical artery Doppler S/D ratio is 2.14 with a PI of 0.77, which is within normal limits for gestational age. IMPRESSION: Single, live, IUP at 34w2d AFV adequate. UAD adequate. No gross anomalies noted during today's ultrasound. No hydronephrosis noted. RECOMMEND: Follow up ultrasound as clinically indicated or as indicated by the in house team. Thank you for allowing us the opportunity to care for your patient. cc: Inpatient at time of study Anusha Heller MD <Electronic Signature> 04/23/2014 04:04pm Damien Gandhi MD [facility] ORDERABLES * HIV-1 HIV-2 ANTIBODIES W RFLX REFLEXED (12/02/2013 8:30 AM CDT) HIV 1/2 EIA Antibody NON-REACT [facility] NON-REACT [facility]RISTIAN [facility] ([facility]) Comment: A Nonreactive HIV-1/2 antibody result does not exclude HIV infection since the time frame for seroconversion is variable. If acute HIV infection is suspected, antibody retesting and nucleic acid amplification (HIV DNA/RNA) testing is recommended. Effective January 13, 2014, [facility] will discontinue the HIV-1 Western Blot confirmation and replace it with an HIV-1/HIV-2 differentiation assay. This assay exhibits increased sensitivity over the HIV-1 Western Blot test and simultaneously differentiates HIV-1 antibody reactivity from HIV-2 antibody reactivity. Test Performed at: [facility] [address] [place] [address] MATY HSIEH DO,MPH 12/02/2013 8:30 AM CDT 12/02/2013 8:31 AM CDT Historical Provider LAB - CHEMISTRY O RDERABLES DANIEL ([facility]) * GROSS + MICRO EXAM (07/31/2009 12:00 PM AUTOMOTIVE SERVICE MANAGER) Only the most recent of2 resultswithin the time period is included. Result CASE NUMBER [id number] Comment: ORDERING PHYSICIAN ERIC KESSLER SPECIMEN TYPE Placenta 3rd Trimes Date 08/01/[address] Jack Kessler Gross Description The specimen is received in a formalin filled container labeled with the patient's name placenta. The specimen consists of a 450 gram loyola discoid placenta with attached membranes and umbilical cord. It measures 16 x 14 x 2 cm. The umbilical cord inserts 4 cm from the nearest placental edge. It has three blood vessels and measures 29 cm in length and up to 2 cm in diameter. The membranes are semitranslucent, shiny, wrinkled, and rupture marginally. The surface displays a dusky bluish-driver appearance. The maternal surface displays slightly disrupted cotyledons. The cut surfaces reveal no intraparenchymal gross abnormalities. Focused Factory Manager sections of the specimen are submitted in cassettes A through C. LW/dc Microscopic Exam Microscopic examination reveals a three vessel umbilical cord showing no evidence of funisitis or thrombosis. The chorioamniotic membranes show no evidence of inflammation, and meconium is not identified. The chorionic villi are small, mature, and well vascularized with no evidence of villitis or infarction. The decidua basalis and chorionic plate show no pathologic changes. GM/na Diagnosis I. Placenta -- Mature placenta, 450 grams -- Three vessel umbilical cord with no pathologic changes -- Chorioamniotic membranes with no pathologic changes GM/na Brokerage Branch Manager na Pathologist Chiqui Nielsen M.D. [place]. 08/03/2009 1546 <1> CPT code 84217 MISCELLANEOUS SAMPLES / Unknown 07/31/2009 12:00 PM AUTOMOTIVE SERVICE MANAGER 08/01/2009 7:14 AM AUTOMOTIVE SERVICE MANAGER Historical Provider LAB - PATHOLOGY/C YTOLOGY ORDERABLES * CULTURE ANAEROBE (07/30/2009 5:50 PM AUTOMOTIVE SERVICE MANAGER) Report [facility] Comment: Final - CULTURE No Anaerobes isolated AMNIOTIC FLUID SPECIMEN / Unknown 07/30/2009 5:50 PM AUTOMOTIVE SERVICE MANAGER 07/30/2009 6:26 PM AUTOMOTIVE SERVICE MANAGER Narrative [facility] - 08/04/2009 3:21 PM AUTOMOTIVE SERVICE MANAGER Amniotic fluid Miranda Miner MD LAB - MICROBIOLOGY O RDERABLES Performing Organization Address [facility] Co de Phone Number [facility] [address] [place] [address] * CULTURE FLUID (07/30/2009 5:50 PM AUTOMOTIVE SERVICE MANAGER) Report [facility] Comment: Final - ACCN COMMENT Amniotic fluid GRAM STAIN Moderate Epithelial cells Moderate debris No WBC's seen No organisms seen CULTURE No growth. AMNIOTIC FLUID SPECIMEN / Unknown 07/30/2009 5:50 PM AUTOMOTIVE SERVICE MANAGER 07/30/2009 6:25 PM AUTOMOTIVE SERVICE MANAGER Narrative [facility] - 08/02/2009 8:21 AM AUTOMOTIVE SERVICE MANAGER Amniotic fluid Miranda Miner MD LAB - MICROBIOLOGY O RDERABLES Performing Organization Address [facility] Co de Phone Number [facility] [address] [place] [address] * GLUCOSE FLUID (07/30/2009 5:50 PM AUTOMOTIVE SERVICE MANAGER) Glucose Fluid 41 mg/dl [facility] AMNIOTIC FLUID SPECIMEN / Unknown 07/30/2009 5:50 PM AUTOMOTIVE SERVICE MANAGER 07/30/2009 6:20 PM AUTOMOTIVE SERVICE MANAGER Miranda Miner MD LAB - BODY FLUID ORD ERABLES Performing Organization Address City/[facility] Co de Phone Number [facility] [address] [place] [address] * LS RATIO FLUID (07/30/2009 5:50 PM AUTOMOTIVE SERVICE MANAGER) L/S Ratio 1.5 SEE BELOW [facility] Comment: Immature <=1.5 Transitional 1.6-1.9 Mature >=2.0 Color Fluid Pale Yellow [facility] Character Amnio Slightly Hazy [facility] Gestational Age 34 1/7 [facility] Volume Amnio 8 ml [facility] Interpretation L/S Ratio [facility] Comment: PLEASE NOTE - L/S Ratio correlates with gestational age only in normal pregnancies. Abnormalities of , such as Retroplacental Bleeding and Ruptured Membranes, Hypertensive Renal or Cardiovascular Disease, Class D, E, and F Diabetes, and Maternal Hypertension can accelerate L/S Ratio maturation. Conversely, delayed maturation of L/S Ratio can be caused by Erythroblastosis Fetalis, Diabetes Mellitus (Class A, B, or C), and Chronic Nonhypertensive Glomerulonephritis. AMNIOTIC FLUID SPECIMEN / Unknown 07/30/2009 5:50 PM AUTOMOTIVE SERVICE MANAGER 07/30/2009 6:20 PM AUTOMOTIVE SERVICE MANAGER Miranda Miner MD LAB - BODY FLUID ORD ERABLES Performing Organization Address [facility] Co de Phone Number [facility] [address] [place] [address] * LUNG MATURITY (07/30/2009 5:50 PM AUTOMOTIVE SERVICE MANAGER) FLM 14.67 SEE BELOW mg/g [facility] Comment: See Interpretation for Normals Color Fluid Pale Yellow [facility] Character Amnio Slightly Hazy [facility] Gestational Age edc 09/09/09, [place] 34 1/7, [facility] Volume Amnio 8 ml [facility] Interpretation [facility] Comment: FLM Immature ......... <= 39 mg/g Mature ......... >= 55 mg/g Results between 40 and 54 cannot be declared mature or immature and should be evaluated with caution. AMNIOTIC FLUID SPECIMEN / Unknown 07/30/2009 5:50 PM AUTOMOTIVE SERVICE MANAGER 07/30/2009 6:20 PM AUTOMOTIVE SERVICE MANAGER Miranda Miner MD LAB - BODY FLUID ORD ERABLES Performing Organization Address [facility] de Phone Number [facility] [address] [place] [address] * DRUG SCREEN TRIAGE PANEL (07/29/2009 11:30 PM AUTOMOTIVE SERVICE MANAGER) Phencyclidine Screen Urine Negative Negative ng/ml [facility] Benzodiazepines Screen Urine Negative Negative ng/ml [facility] Cocaine Screen Urine Negative Negative ng/ml [facility] Amphetamines Screen Urine Negative Negative ng/ml [facility] Cannabinoids Screen Urine Negative Negative ng/ml [facility] Opiate Screen Urine Negative Negative ng/ml [facility] Barbiturates Screen Urine Negative Negative ng/ml [facility] URINE / Unknown 07/29/2009 1 1:30 PM AUTOMOTIVE SERVICE MANAGER 07/30/2009 1:13 AM AUTOMOTIVE SERVICE MANAGER Eric Kessler MD LAB - URINE CHEMISTR Y ORDERABLES Performing Organization Address [facility] Phone Number [facility] [address] [place] [address] * URINALYSIS ROUTINE AUTO (07/29/2009 11:00 PM AUTOMOTIVE SERVICE MANAGER) Source Clean Catch [facility] Color UA Jackson [facility] Character UA Cloudy [facility] Glucose UA NEGATIVE NEGATIVE mg/dl [facility] Bilirubin UA NEGATIVE NEGATIVE [facility] Ketone UA >=80 NEGATIVE mg/dl [facility] Specific [place] UA >=1.030 1.003 - 1.030 [facility] Blood UA LARGE NEGATIVE [facility] pH UA 5.5 5.0 - 9.0 [facility] Protein UA TRACE NEGATIVE-TR MICHELLE mg/dl [facility] Urobilinogen UA 0.2 0.2 - 1.0 Jill Units/dl [facility] Nitrite UA NEGATIVE NEGATIVE [facility] Leukocyte UA NEGATIVE NEGATIVE [facility] RBC UA Field Packed 0 - 2 HPF [facility] URINE SPECIMEN OBTAINED BY CLEAN CATCH PROCEDURE / Unknown 07/29/2009 11:00 PM AUTOMOTIVE SERVICE MANAGER 07/30/2009 1:13 AM AUTOMOTIVE SERVICE MANAGER Eric Kessler MD LAB - URINALYSIS ORD ERABLES Performing Organization Address [facility] Co de Phone Number [facility] [address] [place] [address] * CHLAMYDIA + GC DNA PROBE AMPLIFIED (07/29/2009 7:00 PM AUTOMOTIVE SERVICE MANAGER) Chlamydia trachomatis Amplified Probe NEGATIVE NEGATIVE [facility] GC Amplified Probe NEGATIVE NEGATIVE [facility] Comment Amplified Probe [facility] Comment: Results based on detection/no detection of ribosomal RNA by amplified method. ENTIRE ENDOCERVIX / Unknown 07/29/2009 7:00 PM AUTOMOTIVE SERVICE MANAGER 07/29/2009 8:36 PM AUTOMOTIVE SERVICE MANAGER Eric Kessler MD LAB - MICROBIOLOGY O RDERABLES [facility] [address] [place] [address] Care Teams Oil Painter Relationship Specialty Start Date End Date Kathryn Redmond MD [address] [place] [address] [place] [id number] PCP - General 04/04/18
--- OUTSIDE RECORDS SUMMARY | 2024-11-21 08:49 | XMS_ITS | Clinical Summary ---
Author Organization [facility] Address [address] [place] [address] Care Team Providers Care Agriculture Extension Specialist Name Role Phone Kathryn Redmond MD Primary Care Provider Source Comments [facility],non-owned Affiliates and Associated Physician Practices is amultiple site organization consisting of ambulatory clinics and hospital sitesin [place], [place] and [place]. This disclosure is being madepursuant to the Care Everywhere program and may not contain all information available regarding this patient. Last updated 18.[facility] Allergies Active Allergy Reactions Criticality Noted Date Comments Sulfa Drugs Urticaria 07/29/2009 Pt states has hives with sulfa. Medications * Be aware that medications may not be up to date on this document. Alwaysverify current medications with the patient. Medication Sig Dispensed Refills Start Date End Date Status NIFEdipine CR 24hr (ADALAT CC) 30 MG tablet Take 1 Tab by mouth once daily. Take on an empty stomach. 30 Tab 5 04/24/2014 Active Additional Information Patient taking differently: 60 mgOral DAILY, Take on an empty stomach., Reported on 05/14/2017 escitalopram (LEXAPRO) 20 MG tablet Take 20 mg by mouth once daily Active Active Problems Problem Noted Date Diagnosed Date 08/04/2017 Elevated blood pressure affe cting in third trimester, antepartum 08/02/2017 Maternal chronic hypertension 04/22/2014 Overview (04/22/2014): Baseline 24 hr urine 344 mg protein. Not currently treated EFW (04/08/14): 2396g (83%) Left hydronephrosis 04/22/2014 Overview (04/22/2014): Stable per [facility] chart Loss or of child 04/22/2014 Overview (04/22/2014): Patient lost 4 year old child in accident. Not to be discussed with patient. Hx of multiple organ failure 04/22/2014 Overview (04/22/2014): In G1 at 33 wga, with subsequent delivery. 2/2 PreE. Obesity complicating 04/22/2014 Overview (04/22/2014): Body mass index is 44.74 kg/(m^2). Supervision of high-risk 02/05/2014 Overview (02/05/2014): Dating 12 wk doc US in [facility] epic O+/I/-/-, HIV NR GCT 128 GBS History of pre-eclampsia in prior , currently 02/05/2014 Overview (04/22/2014): Currently on 81mg ASA daily. History of delivery, currently 02/05/2014 S/P section Maternal obesity, delivered, current hospitaliza tion Hypertension in , preeclampsia, deliver ed Resolved Problems Problem Noted Date Diagnosed Date Resolved Date Threatened premature labor, antepartum 07/30/2009 04/22/2014 Overview (03/11/2017): IMO Update 03/18/2017 Immunizations Name Administration Dates Next Due INFLUENZA VACCINE 06/18/2017 TDAP (7yrs+) 06/18/2017 Family History Medical History Relation Name Comments Hypertension Father Diabetes Maternal Grandfather Hypertension Maternal Grandfather Diabetes Maternal Grandmother Heart Disease Maternal Grandmother Hypertension Maternal Grandmother Heart Disease Paternal Grandfather Hypertension Paternal Grandfather Hypertension Paternal Grandmother Relation Name Status Comments Father Maternal Grandfather Maternal Grandmother Paternal Grandfather Paternal Grandmother Social History Tobacco Use Types Packs/Day Years [...] Mass Index 38.62 03/13/2019 11:22 AM CDT Plan of Treatment Health Maintenance Due Date Last Done Comments HEPATITIS C SCREENING 06/25/2004 HEPATITIS B VACCINE (1 of 3 - 19+ 3-dose series) 2005 PAP SMEAR 09/16/2019 09/16/2016 COVID-19 VACCINE (1 - 2023-2 5 season) 2024 INFLUENZA VACCINE (#1) 2024 7, 06/13/2017, 07/05/2016 DEPRESSION SCREENING 09/18/2024 DTAP/TDAP/TD VACCINES (2 - T d or Tdap) 06/18/2027 06/18/2017 ZOSTER VACCINE (1 of 2) 2036 HIV SCREENING Completed 02/23/2017, 12/02/2013 HIB VACCINE Aged Out No longer eligi ble based on patient's age to complete this topic HPV VACCINE Aged Out No longer eligi ble based on patient's age to complete this topic MENINGOCOCCAL (Group B) VACCINE Aged Out No longer eligible b ased on patient's age to complete this topic MENINGOCOCCAL VACCINE Aged Out No daniel joseph eligible based on patient's age to complete this topic PNEUMOCOCCAL VACCINE Aged Out No long er eligible based on patient's age to complete this topic Procedures Procedure Name Priority Date/Time Associated Diagnosis Comments HIV-1 HIV-2 ANTIGEN/ANTIBODY Routine 02/23/2017 10:03 AM CDT PAP IMAGE-GUIDED W HPV Routine 09/16/2016 12:00 AM PAINT GRINDER from Last 3 Months or Most Recently Relevant to Health Maintenance Results * HIV-1 HIV-2 ANTIGEN/ANTIBODY (02/23/2017 10:03 AM CDT) Pathologist [facility] HIV Antigen/Antibody 4th Generation NON-REACT CHRISTIAN NON-REACT CHRISTIAN [facility] Comment: HIV-1 antigen and HIV-1/HIV-2 antibodies were [...] purpose. For additional information please refer to http://education.[employer]/faq/VQB802 (This link is being provided for informational/ educational purposes only.) The performance of this assay has not been clinically validated in patients less than 2 years old. Test Performed at: [facility] [address] [place] [address] MATY HSIEH DO,MPH 02/23/2017 10:0 3 AM CDT 02/23/2017 10:03 AM CDT Damien Gandhi MD LAB - HEMATOLOGY ORD ERABLES [facility] ([facility]) * (ABNORMAL) PAP IMAGE-GUIDED LIQUID BASE W HPV (09/16/2016 12:00 AM PAINT GRINDER) Pathologist [facility] Pap Image-Guided Liquid-Based with HPV Accession No: [id number] Specimen:Endocervi janusz ThinPrep Slides:1 SPECIMEN ADEQUACY: SATISFACTORY FOR EVALUATION - Endocervical / Transformation Zone Component Present INTERPRETATION: NEGATIVE FOR INTRAEPITHELIAL LESION OR MALIGNANCY - Reactive Cellular Changes NOTE(S): HPV DIRECT - HPV Result to Follow This specimen was evaluated by the ThinPrep Imaging System along with an additional manual rescreening by a camp program director and/or pathologist Initial Evaluation performed by Adelfo BUNCH(ASCP). Electronically signed 09/23/2016 Interpretation performed by Arthur Ramos MD. Electronically signed 09/26/2016 (A) [facility] Endocervical 09/16/2016 09/21/2016 10:05 AM PAINT GRINDER Yajaira Don MD LAB - PATHOLOGY/CYTO LOGY ORDERABLES [facility] from Last 3 Months or Most Recently Relevant to Health Maintenance Advance Directives * Full Code (Latest Code Status on File) Date Activated Date Inactivated Comments 08/04/2017 5:14 PM 08/06/2017 1:33 PM * Full Code Date Activated Date Inactivated Comments 05/14/2017 11:51 PM 05/15/2017 2:31 AM * Full Code Date Activated Date Inactivated Comments 05/06/2014 4:44 PM 05/09/2014 3:26 PM * Full Code Date Activated Date Inactivated Comments 04/28/2014 2:07 AM 04/28/2014 2:45 AM * Full Code Date Activated Date Inactivated Comments 04/22/2014 5:24 PM 04/24/2014 7:49 PM Care Teams Agriculture Extension Specialist Relationship Specialty Start Date End Date Kathryn Redmond MD [address] [place] [address] [place] [id number] [facility] - General 04/04/18
--- OUTSIDE RECORDS SUMMARY | 2024-11-21 08:49 | XMS_ITS | Clinical Summary ---
Author Organization [facility] Medical [facility] 1 Address [address] [place] [address] Care Team Providers Care Monument Erector Name Role Phone Kathryn Redmond MD Primary Care Provider + Allergies Active Allergy Reactions Criticality Noted Date Comments Sulfa (Sulfonamide Antibiotics) Hives Medium Medications furosemide (LASIX) 40 mg tabletIndicatio ns:Edema Take 40 mg by mouth 2 (two) times a day as needed 04/10/2020 Active escitalopram (LEXAPRO) 20 mg tabletIndicatio ns:Anxiety with Depression Take 20 mg by mouth every morning 10/09/2019 Active albuterol HFA (Ventolin HFA) 90 mcg/actuation inhalerIndicati ons:Acute Asthma Attack Inhale 2 puffs every 4 (four) hours as needed Active cholecalciferol (Vitamin D3) 1,000 unit capsuleIndicati ons:supplement Take 1,000 Units by mouth every morning 09/01/2020 Active buPROPion XL (WELLBUTRIN XL) 300 mg 24 hr tabletIndicatio ns:Anxiety with Depression Take 300 mg by mouth every morning Active omeprazole (PriLOSEC) 40 mg capsuleIndicati ons:acid reflux Take 40 mg by mouth 2 (two) times a day 05/19/2020 Active NIFEdipine (NIFEdipine XL) 30 mg 24 hr tabletIndicatio ns:HTN Take 30 mg by mouth every morning Active UNABLE TO FIND Med Name: Super B complex with 1000 mcg biotin- one tablet in am Active oxyCODONE (ROXICODONE) 5 mg immediate release tabletIndicatio ns:Pain Take 1 tablet (5 mg total) by mouth every 4 (four) hours as needed for pain 10 tablet 05/28/2021 Active famotidine (Pepcid) 20 mg tablet Take 1 tablet (20 mg total) by mouth 2 (two) times a day 60 tablet 05/28/2021 Active ursodioL (ACTIGALL) 300 mg capsule Take 1 capsule (300 mg total) by mouth 2 (two) times a day 60 capsule 05/28/2021 Active cyanocobalamin (Vitamin B-12) 500 mcg tabletIndicatio ns:Prevention of Vitamin B12 Deficiency Take 1 tablet (500 mcg total) by mouth daily 30 tablet 05/28/2021 Active Active Problems Problem Noted Date Diagnosed Date Gastroesophageal reflux disease 02/17/2021 Overview (02/17/2021): Added automatically from request for surgery [id number] Anxiety disorder 06/22/2020 Depressive disorder, 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 Not to be discussed with patient. hydronephrosis 04/22/2014 Overview (02/24/2021): Stable per [facility] chart Maternal chronic hypertension 04/22/2014 Overview (02/24/2021): Baseline 24 hr urine 344 mg protein. Not currently treated EFW (04/08/14): 2396g (83%) Multiple organ failure 04/22/2014 Overview (02/24/2021): In G1 at 33 wga, with subsequent delivery. 2/2 PreE. Obesity complicating 04/22/2014 Overview (02/24/2021): Body mass index is 44.74 kg/(m^2). Pain of hand 04/26/2013 Surgical History Surgery Date Site/Laterality Comments SECTION 09/18/2016 - 09/17/2017 ESOPHAGOGASTRODUODENOSCOPY Medical History Medical History Date Comments Morbid obesity (HCC) Sleep apnea Hypertension Fractures Anxiety Asthma Depression Motion sickness Family History Medical History Relation Name Comments Cancer Father Stephan Hypertension Father Stephan Obesity Father Stephan Sleep apnea Father Stephan Hypertension Father's Brother Berry Hypertension Father's Sister Carmita Cancer Maternal Grandfather Jr Colon cancer Maternal Grandfather Jr Diabetes Maternal Grandfather Jr Heart failure Maternal Grandfather Jr Sleep apnea Maternal Grandfather Jr Breast cancer Maternal Grandmother More Diabetes Maternal Grandmother More Depression Mother Jen Diabetes Mother's Brother Nino Miscarriages / Stillbirths Mother's Sister Macario Heart attack Paternal Grandfather Edward Hypertension Paternal Grandmother Ritap Depression Sister Mari Obesity Sister Mari Anesthesia problems Neg Hx Relation Name Status Comments Father Stephan Father's Brother Berry Father's Sister Carmita Maternal Grandfather Jr Maternal Grandmother More Mother Jen Mother's Brother Nino Mother's Sister Macario Paternal Grandfather Edward Paternal Grandmother Ritap Sister Mari Social History Tobacco Use Types Packs/Day Years Used Date Smoking Tobacco: Never Smokeless Tobacco: Never Alcohol Use Standard Drinks/Week Comments Not Currently 0 (1 standard drink = 0.6 oz pur e alcohol) AUDIT-C Answer Date Recorded Q1: How often do you have a drink containing alc ohol? Monthly or less 05/27/2021 Q2: How many drinks containi ng alcohol do you have on a typical day when you are drinking? 1 or 2 05/27/2021 Q3: How often do you have si x or more drinks on one occasion? 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 Gender Identity Female 06/09/2020 9:04 PM CDT Sexual Orientation Straight 06/09/2020 9: 04 PM CDT Obstetrics History Last Filed Vital Signs Vital Sign Reading Time Taken Comments Blood Pressure 114/80 06/02/2021 9:15 AM CDT Pulse 81 06/02/2021 9:15 AM CDT Temperature 36.4 C (97.5 F) 06/02/2021 9:15 AM CDT Respiratory Rate 18 05/28/2021 4:00 PM CDT Oxygen Saturation 96% 05/28/2021 8:30 AM CDT Inhaled Oxygen Concentration - - Weight 102.5 kg (226 lb) 06/02/2021 9:15 AM CDT Height 160 cm (5' 3 ) 06/02/2021 9:15 AM CDT Body Mass Index 40.03 06/02/2021 9:15 AM CDT Plan of Treatment Not on file Insurance Advance Directives For more information, please contact: [phone] * Full Code (Latest Code Status on File) Date Activated Date Inactivated Comments 05/27/2021 4:46 PM 05/28/2021 11:22 PM * Full Code Date Activated Date Inactivated Comments 02/24/2021 10:08 AM 02/24/2021 4:04 PM Care Teams Monument Erector Relationship Specialty Start Date End Date Kathryn Redmond MD [address] [place] [address] [address] PCP - General Family Medicine 06/03/20
--- OUTSIDE RECORDS SUMMARY | 2024-11-21 08:49 | XMS_ITS | Referral Summary ---
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 Gender Identity Female 06/09/2020 9:04 PM CDT Sexual Orientation Straight 06/09/2020 9: 04 PM CDT Last Filed Vital Signs Vital Sign Reading [...] Plan of Treatment Not on file Insurance [facility] Advance Directives For more information, please contact: [phone] * Full Code (Latest Code Status on File) Date Activated Date Inactivated Comments 05/27/2021 4:46 PM 05/28/2021 11:22 PM * Full Code Date Activated Date Inactivated Comments 02/24/2021 10:08 AM 02/24/2021 4:04 PM Care Teams Air Defence Officer Relationship Specialty Start Date End Date Kathryn Redmond MD [address] [place] [address] DR GONZALEZ [address] [place] [id number] PCP - General Family Medicine 06/03/20
--- OUTSIDE RECORDS SUMMARY | 2024-11-21 08:49 | XMS_ITS | Referral Summary ---
Author Organization [facility] [employer] Address [address] [place] [address] Care Team Providers Care Chief Engineering Division Name Role Phone Kathryn Redmond MD Primary Care Provider [phone] Source Comments [facility] [employer],non-owned Affiliates and Associated Physician Practices is amultiple site organization consisting of ambulatory clinics and hospital sitesin [place], [place], [place] and [place]. This disclosure is being madepursuant to the Care Everywhere program and may not contain all information available regarding this patient. Last updated 18.[facility] [employer] Allergies Active Allergy Reactions Criticality Noted Date [...] Left hydronephrosis 04/22/2014 Overview (04/22/2014): Stable per [facility] chart Loss or of child 04/22/2014 Overview (04/22/2014): Patient lost 4 year old child in accident. Not to be discussed with patient. Hx of multiple organ failure 04/22/2014 Overview (04/22/2014): In G1 at 34 wga, with subsequent delivery. 2/2 PreE. Obesity complicating 04/22/2014 Overview (04/22/2014): Body mass index is 44.74 kg/(m^2). Supervision of high-risk 02/05/2014 Overview (02/05/2014): Dating 12 wk doc US in [facility] epic O+/I/-/-, HIV NR GCT 128 GBS [...] Due INFLUENZA VACCINE 06/18/2017 TDAP (7yrs+) 06/18/2017 Social History Tobacco Use Types Packs/Day Years [...] Mass Index 38.62 03/13/2019 11:22 AM CDT Functional Status Functional Status Response Date of Assess ment Is person deaf or have serious hearing difficult y? No 08/04/2017 Is person blind or have serious difficulty seein g? No 08/04/2017 Does person have serious dif ficulty walking/climbing stairs? No 08/04/2017 Does person have difficulty dressing/bathing? No 08/04/2017 Does person have difficulty doing errands alone? No 08/04/2017 Cognitive Status Response Date of Assessm ent Does person have difficulty concentrating/remembering/making decisions? No 08/04/2017 Plan of Treatment Not on file Procedures Procedure Name Priority Date/Time Associated Diagnosis Comments HIV-1 HIV-2 ANTIGEN/ANTIBODY Routine 02/23/2017 10:03 AM CDT PAP IMAGE-GUIDED W HPV Routine 09/16/2016 12:00 AM EMERGENCY NURSE from Last 3 Months or Most Recently Relevant to Health Maintenance Results * HIV-1 HIV-2 ANTIGEN/ANTIBODY (02/23/2017 10:03 AM CDT) [facility] [address] HIV Antigen/Antibody 4th Generation NON-REACT CHRISTIAN NON-REACT CHRISTIAN [facility]) Comment: HIV-1 antigen and HIV-1/HIV-2 antibodies were [...] purpose. For additional information please refer to http://education.[employer]ina/faq/DON702 (This link is being provided for informational/ educational purposes only.) The performance of this assay has not been clinically validated in patients less than 2 years old. Test Performed at: [facility] [address] [facility] [place] [address] MATY HSIEH DO,MPH 02/23/2017 10:0 3 AM CDT 02/23/2017 10:03 AM CDT Damien Gandhi MD LAB - HEMATOLOGY ORD ERABLES [facility] ([facility]) * (ABNORMAL) PAP IMAGE-GUIDED LIQUID BASE W HPV (09/16/2016 12:00 AM EMERGENCY NURSE) Pap Image-Guided Liquid-Based with HPV Accession No: [id number] Specimen:Endocervi janusz ThinPrep Slides:1 SPECIMEN ADEQUACY: SATISFACTORY FOR EVALUATION - Endocervical / Transformation Zone Component Present INTERPRETATION: NEGATIVE FOR INTRAEPITHELIAL LESION OR MALIGNANCY - Reactive Cellular Changes NOTE(S): HPV DIRECT - HPV Result to Follow This specimen was evaluated by the ThinPrep Imaging System along with an additional manual rescreening by a sales receptionist and/or pathologist Initial Evaluation performed by Adelfo BUNCH(ASCP). Electronically signed 09/23/2016 Interpretation performed by Arthur Ramos MD. Electronically signed 09/26/2016 (A) [facility] Endocervical 09/16/2016 09/21/2016 10:05 AM EMERGENCY NURSE Yajaira Don MD LAB - PATHOLOGY/CYTO LOGY ORDERABLES [facility] from Last [...] 5:24 PM 04/24/2014 7:49 PM Care Teams Chief Engineering Division Relationship Specialty Start Date End Date Kathryn Redmond MD [address] [place] [address] PCP - General 04/04/18
--- OUTSIDE RECORDS SUMMARY | 2024-11-21 08:49 | XMS_ITS | Data Portability ---
Author Organization [facility] [employer], Main Office Address [address] [place] [address] Assessment No assessment recorded. Plan of Treatment Reminders Order Date Submit Date Provider Last Modified By Organization Details Last Modified Time Details Appointments None recorded. Lab BMP, serum or plasma 2022 023 [email or web address] Not available 17:44:34 CBC w/ auto diff 2022 023 [place] [id number] Not available 17:45:01 HbA1c (hemoglobin A1c), blood 2022 023 [email or web address] [id number] Not available 17:44:12 lipid panel, serum 2022 023 [email or web address] [facility] ([facility]), [address] [place], [address], 08:06:32 Referral None recorded. Procedures None recorded. Surgeries None recorded. Imaging None recorded. Medication Orders neomycin-po lymyxin-hyd rocort 3.5 mg-10,000 unit/mL-1 % ear drops,susp 2022 023 [facility]/Pharmacy #[id number], [address], [place], [address], 3 12:38:44 Augmentin 875 mg-125 mg tablet 2022 023 [facility]/Pharmacy #[id number], [address], [place], [address], 3 12:30:34 hydrochloro thiazide 25 mg tablet 2022 023 [email or web address] [facility]/Pharmacy #[id number], [address], [place], [address], 3 11:35:50 nifedipine ER 30 mg tablet,exte nded release 2022 023 FRIDA [facility]/Pharmacy #[id number], [address], [place], [address], 3 16:48:49 Patient TargetsNo targets recorded. Patient InstructionsNo instructions recorded. Reason for Referral None Reported. Results Created Date Observation Date Name Description Value Unit Range Abnormal Flag Note LastModifiedBy Organization Detail LastModifiedTime 01/19/2001/18/2023 BASIC METAB OLIC PANEL sodium 136 mmol/ L 137-14 5 low Not Available [facility] (Lab) [address] [place], [address], 01/18/2023 20:40:57 01/19/20 23 01/18/2023 BASIC METAB OLIC PANEL potassium 4.0 mmol/ L 3.5-5. 1 Not Available [facility] (Lab) [address] [place], [address], 01/18/2023 20:40:57 01/19/20 23 01/18/2023 BASIC METAB OLIC PANEL chloride 104 mmol/ L 98-107 Not Available [facility] (Lab) [address] [place], [address], 01/18/2023 20:40:57 01/19/20 23 01/18/2023 BASIC METAB OLIC PANEL carbon dioxide 24 mmol/ L 22-30 Not Available [facility] (Lab) [address] [place], [address], 01/18/2023 20:40:57 01/19/20 23 01/18/2023 BASIC METAB OLIC PANEL anion gap 12.0 mmol/ L 14-22 low Not Available [facility] (Lab) [address] [place], [address], 01/18/2023 20:40:57 01/19/20 23 01/18/2023 BASIC METAB OLIC PANEL glucose 98 mg/dL 70-99 Not Available [facility] (Lab) [address] [place], [address], 01/18/2023 20:40:57 01/19/20 23 01/18/2023 BASIC METAB OLIC PANEL BUN 10 mg/dL 8-19 Not Available [facility] (Lab) [address] [place], [address], 01/18/2023 20:40:57 01/19/20 23 01/18/2023 BASIC METAB OLIC PANEL creatinine 0.76 mg/dL 0.66-1 .25 Not Available [facility] (Lab) [address] [place], [address], 01/18/2023 20:40:57 01/19/20 23 01/18/2023 BASIC METAB OLIC PANEL GFR >60 Refer ence Range : Fosters ge GFR Healt hy Adult : >60 mL/mi n/1.7 3 m2 Chron ic Kidne y Disea se: 15-60 mL/mi n/1.7 3 m2 Kidne y Failu re: <15/m L/min /1.73 m2 www.n iddk. nih.g ov The MDRD study equat ion has not been valid ated in child rhonda <18 years of age; pregn ant women ; the elder ly >85 years of age; or in some racia l or ethni c subgr oups, such as Hispa nics. Outsi de the valid ated samira eters , estim ated GFR is less accur ate, requi ring clini janusz judgm ent on a case- by-ca se basis . Clini janusz inter preta tion for other races and ages must be made by the clini laurel. The MDRD study equat ion has not been valid ated for the evalu ation of serum creat inine relat ed to nutri hilaria l statu s or medic ation usage . For perso ns <18 years of age, a pedia tric GFR calcu lator is avail able on the F websi te: https ://alejandro rangel.aria lane.o rg/pr ofess ional s/kdo qi/gf r_cal culat or Not Available [facility] (Lab) [address] [place], [address], 01/18/2023 20:40:57 01/19/20 23 01/18/2023 BASIC METAB OLIC PANEL calcium 9.6 mg/dL 8.4-10 .2 Not Available [facility] (Lab) [address] [place], [address], 01/18/2023 20:40:57 01/19/20 23 01/18/2023 HEMOG LOBIN A1C HA1C 4.9 % 4.0-6. 0 Diabe soraya Scree jessica Crite max: <5.7% Consi stent with absen ce of diabe soraya 5.7-6 .4% Consi stent with incre ased risk for diabe soraya (pred iabet es) >OR=6 .5% Consi stent with diabe soraya REFER ENCE: Diabe soraya Care 2016, 39(Arshad ppl.1 ):s13 -s22 Not Available [facility] (Lab) [address] [place], [address], 01/18/2023 20:47:50 01/19/20 23 01/18/2023 CBC/C OMPLE TE BLD COUNT W/DIF F white blood cells 8.3 x10'3 /uL 4.2-10 .8 Not Available [facility] (Lab) [address] [place], [address], 01/18/2023 20:51:59 01/19/20 23 01/18/2023 CBC/C OMPLE TE BLD COUNT W/DIF F red blood cells 4.38 x10'6 /uL 3.80-5 .20 Not Available [facility] (Lab) [address] [place], [address], 01/18/2023 20:51:59 01/19/20 23 01/18/2023 CBC/C OMPLE TE BLD COUNT W/DIF F hemoglobin 13.0 g/dL 12.0-1 5.6 Not Available [facility] (Lab) [address] [facility] [place], [address], 01/18/2023 20:51:59 01/19/20 23 01/18/2023 CBC/C OMPLE TE BLD COUNT W/DIF F hematocrit 38.6 % 35.7-4 5.7 Not Available [facility] (Lab) [address] [facility] [place], [address], 01/18/2023 20:51:59 01/19/20 23 01/18/2023 CBC/C OMPLE TE BLD COUNT W/DIF F mean red cell volume 88.1 fL 82.0-9 9.0 Not Available [facility] (Lab) [address] [place], [address], 01/18/2023 20:51:59 01/19/20 23 01/18/2023 CBC/C OMPLE TE BLD COUNT W/DIF F mean red cell hemoglobin 29.7 pg 27.0-3 3.0 Not Available [facility] (Lab) [address] [place], [address], 01/18/2023 20:51:59 01/19/20 23 01/18/2023 CBC/C OMPLE TE BLD COUNT W/DIF F mean RBC HGB concentratio n 33.7 g/dL 31.0-3 6.0 Not Available [facility] (Lab) [address] [place], [address], 01/18/2023 20:51:59 01/19/20 23 01/18/2023 CBC/C OMPLE TE BLD COUNT W/DIF F red cell distribution width 12.2 % 11.8-1 5.5 Not Available [facility] (Lab) [address] [place], [address], 01/18/2023 20:51:59 01/19/20 23 01/18/2023 CBC/C OMPLE TE BLD COUNT W/DIF F platelets 321 x10'3 /uL 150-40 0 Not Available [facility] (Lab) [address] [place], [address], 01/18/2023 20:51:59 01/19/20 23 01/18/2023 CBC/C OMPLE TE BLD COUNT W/DIF F mean platelet volume 10.3 fL 9.0-12 .4 Not Available [facility] (Lab) [address] [place], [address], 01/18/2023 20:51:59 01/19/20 23 01/18/2023 CBC/C OMPLE TE BLD COUNT W/DIF F neutrophils 63.8 % 39.0-7 2.0 Not Available [facility] (Lab) [address] [place], [address], 01/18/2023 20:51:59 01/19/20 23 01/18/2023 CBC/C OMPLE TE BLD COUNT W/DIF F lymphocytes 25.1 % 16.0-4 7.0 Not Available [facility] (Lab) [address] [place], [address], 01/18/2023 20:51:59 01/19/20 23 01/18/2023 CBC/C OMPLE TE BLD COUNT W/DIF F monocytes 6.1 % 5.0-12 .0 Not Available [facility] (Lab) [address] [place], [address], 01/18/2023 20:51:59 01/19/20 23 01/18/2023 CBC/C OMPLE TE BLD COUNT W/DIF F eosinophils 3.8 % 1.0-7. 0 Not Available [facility] (Lab) [address] [place], [address], 01/18/2023 20:51:59 01/19/20 23 01/18/2023 CBC/C OMPLE TE BLD COUNT W/DIF F basophils 1.0 % 0.0-2. 0 Not Available [facility] (Lab) [address] [place], [address], 01/18/2023 20:51:59 01/19/20 23 01/18/2023 CBC/C OMPLE TE BLD COUNT W/DIF F immature granulocytes 0.2 % 0.00-0 .50 Not Available [facility] (Lab) [address] [place], [address], 01/18/2023 20:51:59 01/19/20 23 01/18/2023 CBC/C OMPLE TE BLD COUNT W/DIF F neutrophils, absolute count 5.30 x10'3 /uL 1.5-8. 0 Not Available [facility] (Lab) [address] [place], [address], 01/18/2023 20:51:59 01/19/20 23 01/18/2023 CBC/C OMPLE TE BLD COUNT W/DIF F lymphocytes, absolute count 2.09 x10'3 /uL 1.07-3 .43 Not Available [facility] (Lab) [address] [place], [address], 01/18/2023 20:51:59 01/19/20 23 01/18/2023 CBC/C OMPLE TE BLD COUNT W/DIF F monocytes, absolute count 0.51 x10'3 /uL 0.29-0 .99 Not Available [facility] (Lab) [address] [place], [address], 01/18/2023 20:51:59 01/19/20 23 01/18/2023 CBC/C OMPLE TE BLD COUNT W/DIF F eosinophils, absolute count 0.32 x10'3 /uL 0.02-0 .53 Not Available [facility] (Lab) [address] [place], [address], 01/18/2023 20:51:59 01/19/20 23 01/18/2023 CBC/C OMPLE TE BLD COUNT W/DIF F basophils, absolute count 0.08 x10'3 /uL 0.01-0 .08 Not Available [facility] (Lab) [address] [place], [address], 01/18/2023 20:51:59 01/19/20 23 01/18/2023 CBC/C OMPLE TE BLD COUNT W/DIF F immature granulocytes ,absolute 0.02 x10'3 /uL 0.00-0 .05 Not Available [facility] (Lab) [address] [place], [address], 01/18/2023 20:51:59 01/19/20 23 01/18/2023 CBC/C OMPLE TE BLD COUNT W/DIF F nucleated red blood cells 0.0 % -0 Not Available [facility] (Lab) [address] [place], [address], 01/18/2023 20:51:59 01/19/20 23 01/18/2023 CBC/C OMPLE TE BLD COUNT W/DIF F NRBC# 0.00 x10'3 /uL Not Available [facility] (Lab) [address] [place], [address], 01/18/2023 20:51:59 Result Notes None recorded. Problems Name Problem SNOMED Code Status Onset Date Resolution Date Notes Provider Name and Address Organization Details Recorded Time Gestational diabetes mellitus 66650248 Active 2016 Not Available [employer] 02:55:44 Depressive disorder 34481345 Active 2019 Not Available [employer] 3 02:55:44 Hypertensive disorder 24331073 Active 2019 Not Available [facility] 3 02:55:44 Anxiety 74493414 Active 2019 Not Available [facility] 3 02:55:44 Essential hypertension 51453457 Active Not Available [facility] 3 02:55:44 Sleep apnea 80985103 Active 2019 Not Available [facility] 3 02:55:44 Hyperglycemi a 41752593 Active Not Available [facility] 3 02:55:44 Weight gain 9264469 Active Not Available [facility] 3 02:55:44 Dizziness 286455554 Active 2022 Kathryn Redmond MD [address], [place], [address] , [employer] 3 16:44:11 Hyperlipidem ia 75762742 Active 2022 Kathryn Redmond MD [address], [address] [facility], [place], [address] , [employer] [facility] [employer] 3 16:45:32 Puncture wound of finger 722308615 Active 2022 SERENITY Davalos [address], [place], [address] , [employer] [facility] [employer] [facility] 3 10:31:06 Otalgia of right ear 4879884151 Active 2022 Kathryn Redmond MD [address], [address], [place], [address] , [employer] [facility] [employer] [facility] 3 12:36:04 Problem Notes None recorded. Procedures Surgical History Date Name Laterality Status Provider Name and Address Organization Details Recorded Time 05/27/20 21 laparoscopic sleeve gastrectomy completed Not Available [facility] 11/16/2022 02:48:31 Imaging Results None recorded. Procedure Notes None recorded. Medical Equipment None Reported. Allergies Allergen ID Allergen Name Allergen Category Reaction Reaction Severity Criticality Documentation Date Start Date Code Code System Note Provider Name and Address Organization Details Recorded Time 2566 Substance with sulfonami de structure and antibacte rial mechanism of action (substanc e) medicatio n Not available Not available Not available 11/16/2022 81262 8003 SNOMED Not Available [facility] 3 03:04:09 Medications Name Sig Start Date Stop Date Status Note LastModified by Organization Details LastModified Time losartan 50 mg tablet Take 1 tablet every day by oral route. active 2 po qday MK Not Available Not Available Not Available nifedipine ER 30 mg tablet,exte nded release 24 hr TAKE 1 TABLET BY MOUTH EVERY DAY active Not Available Not Available No t Available cyclobenzap rine 10 mg tablet 07/14 completed Not Available Not Available Not Available furosemide 40 mg tablet TAKE 1 TABLET BY MOUTH TWICE A DAY NEEDED FOR EDEMA (SWELLING ) active Not Available Not Available No t Available ondansetron HCl 4 mg tablet 07/14 completed Not Available Not Available Not Available phentermine 37.5 mg tablet TAKE 1 TABLET BY MOUTH EVERY DAY active Not Available Not Available No t Available nifedipine ER 30 mg tablet,exte nded release TAKE 1 TABLET BY MOUTH EVERY DAY active Not Available Not Available No t Available omeprazole 40 mg capsule,del ayed release Take 1 capsule every day by oral route. active Not Available Not Available No t Available amoxicillin 500 mg tablet TAKE 1 TABLET BY MOUTH TWICE A DAY FOR 10 DAYS 01/13 completed Not Available Not Available Not Available oxycodone-a cetaminophe n 5 mg-325 mg tablet 08/14 completed Not Available Not Available Not Available famotidine 20 mg tablet 07/14 completed Not Available Not Available Not Available cyanocobala min (vit B-12) 500 mcg tablet 07/14 completed Not Available Not Available Not Available nifedipine ER 60 mg tablet,exte nded release 24 hr TAKE 1 TABLET BY MOUTH EVERY DAY active Not Available Not Available No t Available ferrous sulfate 325 mg (65 mg iron) tablet 07/14 completed Not Available Not Available Not Available neomycin-po lymyxin-dex ameth 3.5 mg/mL-10,00 0 unit/mL-0.1 % eye drops 11/26 completed Not Available Not Available Not Available hyoscyamine 0.125 mg sublingual tablet 07/14 completed Not Available Not Available Not Available ursodiol 300 mg capsule 07/14 completed Not Available Not Available Not Available docusate sodium 100 mg capsule 07/14 completed Not Available Not Available Not Available hydrochloro thiazide 25 mg tablet active Not Available Not Available No t Available furosemide 20 mg tablet TAKE 1 TABLET BY MOUTH EVERY DAY 01/13 completed Not Available Not Available Not Available ibuprofen 600 mg tablet 08/14 completed Not Available Not Available Not Available scopolamine 1 mg over 3 days transdermal patch 07/14 completed Not Available Not Available Not Available nifedipine ER 60 mg tablet,exte nded release Take 1 tablet every day by oral route. active Not Available Not Available No t Available metformin ER 500 mg tablet,exte nded release 24 hr 08/14 completed Not Available Not Available Not Available amoxicillin 875 mg-potassiu m clavulanate 125 mg tablet TAKE 1 TABLET BY MOUTH EVERY 12 HOURS WITH MEALS FOR 10 DAYS active Not Available Not Available No t Available Ventolin HFA 90 mcg/actuati on aerosol inhaler TAKE 2 PUFFS BY MOUTH EVERY 4 HOURS 07/14 completed Not Available Not Available Not Available neomycin-po lymyxin-hyd rocort 3.5 mg-10,000 unit/mL-1 % ear drops,susp INSTILL 4 DROPS INTO AFFECTED EAR(S) BY OTIC ROUTE 3 TIMES PER DAY FOR 7 DAYS active Not Available Not Available No t Available escitalopra m 10 mg tablet TAKE 1 TABLET BY MOUTH EVERY DAY active Not Available Not Available No t Available escitalopra m 20 mg tablet TAKE 1 TABLET BY MOUTH EVERY DAY 09/22 completed Not Available Not Available Not Available bupropion HCl XL 300 mg 24 hr tablet, extended release TAKE 1 TABLET BY MOUTH EVERY DAY active Not Available Not Available No t Available bupropion HCl XL 150 mg 24 hr tablet, extended release TAKE 1 TABLET BY MOUTH EVERY DAY active Not Available Not Available No t Available Pain Relief Extra Strength (acetaminop hen) 500 mg tablet 07/14 completed Not Available Not Available Not Available Vitamin D3 1000 IU 07/14 completed Not Available Not Available Not Available aprepitant 40 mg capsule 07/14 completed Not Available Not Available Not Available B12 07/14 completed Not Available Not Available Not Available BD Ultra-Fine Lida Pen Needle 32 gauge x 08/14 completed Not Available Not Available Not Available Thera-M 9 mg iron-400 mcg tablet 07/14 completed Not Available Not Available Not Available Humulin N NPH U-100 Insulin KwikPen 100 unit/mL (3 mL) subcutaneou s 08/14 completed Not Available Not Available Not Available PrePlus 27 mg iron-1 mg tablet 11/26 completed Not Available Not Available Not Available TRUEplus Ketone strips 08/14 completed Not Available Not Available Not Available Vitals Date Recorded Body weight Body temperature Heart rate Oxygen saturation Oxygen saturation in Arterial blood by Pulse oximetry Systolic blood pressure Diastolic blood pressure Provider Name and Address Organization Details Last Updated DateTime 3 80706.5 5 g 97.9 [degF] 76 /min 97 % 97 % 128 mm[Hg] 76 mm[Hg] Aminah tavarez [facility] [employer] [facility] [employer] 3 16:32:33 Date Recorded Body weight Body temperature Heart rate Oxygen saturation Oxygen saturation in Arterial blood by Pulse oximetry Systolic blood pressure Diastolic blood pressure Provider Name and Address Organization Details Last Updated DateTime 3 92215.7 g 98.1 [degF] 86 /min 98 % 98 % 164 mm[Hg] 98 mm[Hg] Malcom Palacios RN [facility] [employer] [facility] 3 09:18:16 Date Recorded Body temperature Oxygen saturation Oxygen saturation in Arterial blood by Pulse oximetry Heart rate Body weight Systolic blood pressure Diastolic blood pressure Provider Name and Address Organization Details Last Updated DateTime 3 98.3 [degF] 98 % 98 % 71 /min 09075.8 8 g 132 mm[Hg] 76 mm[Hg] Yasmine Thrasher [facility] [employer] [facility] [employer] [facility] 3 12:24:39 Date Recorded Body weight Body temperature Heart rate Oxygen saturation Oxygen saturation in Arterial blood by Pulse oximetry Systolic blood pressure Diastolic blood pressure Provider Name and Address Organization Details Last Updated DateTime 3 45948.7 g 98.1 [degF] 78 /min 98 % 98 % 150 mm[Hg] 80 mm[Hg] Malcom Palacios RN [facility] [employer] [facility] 12:20:07 Date Recorded Body mass index (BMI) Body height Body weight Provider Name and Address Organization Details Last Updated DateTime 09/22/2021 34.5 kg/m2 160.02 cm 39557.51 g Not Available Jocelyn watt 11/16/2022 02:54:52 Social History Question Answer Notes LastModified by Organizat ion Details LastModified Time Tobacco Smoking Status Never Smoker Maryann graham [place] - [facility] [employer] [facility] 01/18/2023 16:23:59 What Is Your Level Of Alcohol Consumption? Occasional [id number] Information not available 11/16/2022 What Is Your Level Of Caffeine Consumption? Moderate [id number] Information not available 11/16/2022 In The 14 Days Before Symptom Onset, Have You Had Close Contact With A Laboratory-confir med COVID-19 While That Case Was Ill? No Information not available 01/18/2023 In The 14 Days Before Symptom Onset, Have You Had Close Contact With A Person Who Is Under Investigation For COVID-19 While That Person Was Ill? No [email or web address] Information not available 01/18/2023 Do You Or Have You Ever Used E-cigarettes Or Vape? Never Used Electronic Cigarettes Information not available 01/18/2023 What Was The Date Of Your Most Recent Tobacco Screening? 07/14/2021 [email or web address] Information not available 01/18/2023 Do You Or Have You Ever Used Smokeless Tobacco? Never Used Smokeless Tobacco [id number] Information not available 11/16/2022 Do You Feel Stressed (tense, Restless, Nervous, Or Anxious, Or Unable To Sleep At Night)? [id number] [email or web address] Information not available 01/18/2023 Do You Use Sunscreen Routinely? No [email or web address] Information not available 01/18/2023 Sex: Unknown Functional Status None recorded. Mental Status None recorded. Family History Relationship Description Onset Age of this Age Resolved Age Notes LastModified by Organization Details LastModified Time Father Hypertensive disorder [id number] Not available 11/16/2022 02:48:36 Father Malignant tumor of kidney Not available 2022 16:23:58 Paternal Grandmother Hypertensive disorder [id number] Not available 11/16/2022 02:48:37 Paternal Aunt Hypertensive disorder [id number] Not available 11/16/2022 02:48:37 Paternal Grandfather Myocardial infarction [id number] Not available 11/16/2022 02:48:37 Maternal Grandfather Diabetes mellitus [id number] Not available 11/16/2022 02:48:37 Maternal Grandfather Congestive heart failure Not available 2022 16:23:58 Maternal Grandfather Malignant tumor of colon dx in his 70s [email or web address] Not available 01/18/2023 16:23:58 Maternal Grandmother Diabetes mellitus [id number] Not available 11/16/2022 02:48:37 Maternal Grandmother Malignant tumor of breast [email or web address] Not available 2022 16:23:58 Notes:ovary cancer Medical History No medical history recorded. Gynecological History Statement/Question Response Dislike of Light during Menstrual Headac he N Duration of Flow (days) 7 Current Control Method None Age at Menarche 12 Flow Moderate Date of LMP 09/21/2021 Breast Problems no Obstetrics History GPAL:G 3 P 0 0 0 0 Immunizations Vaccine Type Date Status Note Provider Nam e and Address Organization Details Recorded Time Influenza, split virus, quadrivalent, preservative 6 completed Not Available [facility] 11/16/2022 03:04:03 Past Encounters Encounter ID Performer Location Encounter Start Date Encounter Closed Date Diagnosis/Indication Diagnosis SNOMED-CT Code Diagnosis ICD10 Code Diagnosis Note [id number] [facility] [address] [place] [address] 12/15/2020 00:00:00 12/15/2020 09:53:02 [id number] [facility] [address] [place] [address] 01/15/2021 00:00:00 01/15/2021 11:45:48 [id number] [facility] Pulmonolo [facility] [place] [address] [place] [address] 03/15/2021 00:00:00 03/15/2021 11:57:[id number] [place] [address] 07/14/2021 00:00:00 07/14/2021 17:15:21 [id number] [facility] [address] [place] [address] 09/22/2021 00:00:00 09/22/2021 15:46:38 [id number] Kathryn Redmond MD [address] [place] [address] 01/18/2023 16:22:22 01/18/2023 17:03:56 Essential hypertension 39511915 I10 decrease nifedipine ER 30 mg dailycheck home blood pressures Dizziness 024819379 R42 R73.9 decrease nifedipine as abovestay well hydratedch isa labs Hyperlipidemia 13631196 E78.5 [id number] Kathryn Redmond MD [address] [facility] [place] [address] 03/01/2023 09:12:10 03/01/2023 09:50:23 Essential hypertension [id number] I10 not in good controlwil l d/c nifedipine due to dizzinesst rial of hctz 25 mg dailyf/u in 6 weeks, check home blood pressures 2x per week [id number] [facility] Primary [address] [place] [address] 03/03/2023 12:19:51 03/03/2023 12:34:46 Cat bite [id number] W55.01XA Left hand, index finger. No active drainage. Some erythema/s welling.Ad vised to take medication as directed; keep area clean and dry.Pt. instructed on red flag symptoms. Puncture w ound of finger [id number] S61.231A Occurred yesterday. [id number] Kathryn Redmond MD [facility] Primary Care [address] [place] [address] 07/05/2023 12:08:54 07/05/2023 12:40:43 Otalgia of right ear [id number] H92.01 No foreign object in ear, but pt c/o mild tenderness abx drop prescribed , call by Monday if no improvemen tavoid qtip use in future Health Concerns Section Related Observation LastModified by Organization Detai ls LastModified Time None Recorded Concern Status LastModified by Organization Details LastModified Time None Recorded Advance Directives Directive None Recorded Payers Encounter Date Sequence Insurance Name Policy Number Policy Nick Covered Member ID Nick Member ID Guarantor Name 01/18/2023 1 [place] [id number] Arthur Goode [id number] Arianna L A Goode 01/18/2023 2 [place] [facility] [place] Arianna Goode [id number] Arianna L A Goode 03/01/2023 1 [place] [id number] Arthur Goode [id number] Arianna L A Goode 03/01/2023 2 [place] Arianna Goode [id number] Arianna L A Goode 03/03/2023 1 [place] [id number] Arthur Goode [id number] Arianna L A Goode 03/03/2023 2 [place] Arianna Goode [id number] Arianna L A Goode 07/05/2023 1 [place] [id number] Arthur Goode [id number] Arianna L A Goode 07/05/2023 2 [place] [facility] [place] [place] Arianna Goode [id number] Arianna L A Goode Notes Date Note Type Note Provider Name and Address Organization Details Recorded Time 01/18/2023 text/html had episode of dizziness, nausea, hot flash, had to be sent home from work. Hamill fine after a few minutes. Kathryn Redmond MD [address] [place] [address], [facility] [address], [place], [address], [facility] 02/14/2023 18:31:47 03/01/2023 text/html home blood pressures 129/95, 147/96, 128/81, 133/94, 146/95, 132/86, 143/84, 134/95, 143/107, 124/84 Kathryn Redmond MD [address], [place] [address], [place], [address], [employer] 03/17/2023 11:36:06 03/03/2023 text/html Pt. here for a cat bite that occurred yesterday. It has started to get red and swollen. She has been keeping it clean with alcohol and using ice. [facility] [address], [facility] [address], [place], [address], [employer] 03/07/2023 10:31:42 07/05/2023 text/html Thinks she has part of qtip swab right ear since yesterday, no bleeding or drainage. Right ear is a bit sore. Her ear was itchy which prompted qtip use, but she pulled swab out and cotton tip was missing. Kathryn Redmond MD [address], [facility] [address], [place], [address], [employer] 07/05/2023 12:43:24 OBGyn Episode No OBEpisode recorded.
--- OUTSIDE RECORDS SUMMARY | 2024-11-21 10:04 | XMS_ITS | Clinical Summary ---
Author Organization [facility] Address [address] [place] [address] Care Team Providers Care Supervisor Fabrication And Assembly Name Role Phone Kathryn Redmond MD Primary Care Provider [phone] Source Comments [facility],non-owned Affiliates and Associated Physician Practices is amultiple site organization consisting of ambulatory clinics and hospital sitesin [place], [place], [place] and [place]. This disclosure is being madepursuant to the Care Everywhere program and may not contain all information available regarding this patient. Last updated 18.[facility] Allergies Active Allergy Reactions Criticality Noted Date [...] Left hydronephrosis 04/22/2014 Overview (04/22/2014): Stable per [facility] chart Loss or of child 04/22/2014 Overview (04/22/2014): Patient lost 4 year old child in accident. Not to be discussed with patient. Hx of multiple organ failure 04/22/2014 Overview (04/22/2014): In G1 at 33 wga, with subsequent delivery. 2/2 PreE. Obesity complicating 04/22/2014 Overview (04/22/2014): Body mass index is 44.74 kg/(m^2). Supervision of high-risk 02/05/2014 Overview (02/05/2014): Dating 12 wk doc US in [facility] epic O+/I/-/-, HIV NR GCT 128 GBS [...] IMAGE-GUIDED W HPV Routine 09/16/2016 12:00 AM RELATIONSHIP SPECIALIST from Last 3 Months or Most Recently Relevant to Health Maintenance Results * HIV-1 HIV-2 ANTIGEN/ANTIBODY (02/23/2017 10:03 AM CDT) Pathologist [facility] HIV Antigen/Antibody 4th Generation NON-REACT CHRISTIAN NON-REACT CHRISTIAN [facility] ([facility]) Comment: HIV-1 antigen and HIV-1/HIV-2 antibodies were [...] purpose. For additional information please refer to http://education.Relux/faq/BXB703 (This link is being provided for informational/ educational purposes only.) The performance of this assay has not been clinically validated in patients less than 2 years old. Test Performed at: [facility] [address] [place] [address] MATY HSIEH DO,MPH 02/23/2017 10:0 3 AM CDT 02/23/2017 10:03 AM CDT Damien Gandhi MD LAB - HEMATOLOGY ORD ERABLES [facility] ([facility]) * (ABNORMAL) PAP IMAGE-GUIDED LIQUID BASE W HPV (09/16/2016 12:00 AM RELATIONSHIP SPECIALIST) Pathologist [facility] Pap Image-Guided Liquid-Based with HPV Accession No: [id number] Specimen:Endocervi janusz ThinPrep Slides:1 SPECIMEN ADEQUACY: SATISFACTORY FOR EVALUATION - Endocervical / Transformation Zone Component Present INTERPRETATION: NEGATIVE FOR INTRAEPITHELIAL LESION OR MALIGNANCY - Reactive Cellular Changes NOTE(S): HPV DIRECT - HPV Result to Follow This specimen was evaluated by the ThinPrep Imaging System along with an additional manual rescreening by a filler operator and/or pathologist Initial Evaluation performed by Adelfo BUNCH(ASCP). Electronically signed 09/23/2016 Interpretation performed by Arthur Ramos MD. Electronically signed 09/26/2016 (A) [facility] ([place]) Endocervical 09/16/2016 09/21/2016 10:05 AM RELATIONSHIP SPECIALIST Yajaira Don MD LAB - PATHOLOGY/CYTO LOGY ORDERABLES [facility] ([place]) from Last 3 Months [...] 5:24 PM 04/24/2014 7:49 PM Care Teams Supervisor Fabrication And Assembly Relationship Specialty Start Date End Date Kathryn Redmond MD [address] [place] [address] [place] [address] [facility] - General 04/04/18
--- OUTSIDE RECORDS SUMMARY | 2024-11-21 10:04 | XMS_ITS | Referral Summary ---
Author Organization [facility] Address [address] [place] [address] Care Team Providers Care Stationary Steam Engineer Name Role Phone Kathryn Redmond MD Primary Care Provider [phone] Source Comments [facility],non-owned Affiliates and Associated Physician Practices is amultiple site organization consisting of ambulatory clinics and hospital sitesin [place], [place], [place] and [place]. This disclosure is being madepursuant to the Care Everywhere program and may not contain all information available regarding this patient. Last updated 18.[facility] Allergies Active Allergy Reactions Criticality Noted Date [...] Left hydronephrosis 04/22/2014 Overview (04/22/2014): Stable per [facility] chart Loss or of child 04/22/2014 Overview (04/22/2014): Patient lost 4 year old child in accident. Not to be discussed with patient. Hx of multiple organ failure 04/22/2014 Overview (04/22/2014): In G1 at 33 wga, with subsequent delivery. 2/2 PreE. Obesity complicating 04/22/2014 Overview (04/22/2014): Body mass index is 44.74 kg/(m^2). Supervision of high-risk 02/05/2014 Overview (02/05/2014): Dating 12 wk doc US in [facility] epic O+/I/-/-, HIV NR GCT 128 GBS [...] IMAGE-GUIDED W HPV Routine 09/16/2016 12:00 AM MILL ROLL OPERATOR from Last 3 Months or Most Recently Relevant to Health Maintenance Results * HIV-1 HIV-2 ANTIGEN/ANTIBODY (02/23/2017 10:03 AM CDT) [facility] HIV Antigen/Antibody 4th Generation NON-REACT CHRISTIAN NON-REACT CHRISTIAN [facility] ([facility]) Comment: HIV-1 antigen and HIV-1/HIV-2 [...] purpose. For additional information please refer to http://education.Tadpoles.Sociercise/faq/DZX061 (This link is being provided for informational/ educational purposes only.) The performance of this assay has not been clinically validated in patients less than 2 years old. Test Performed at: [facility] [address] [facility] [place] [address] MATY HSIEH DO,MPH 02/23/2017 10:0 3 AM CDT 02/23/2017 10:03 AM CDT Damien Gandhi MD LAB - HEMATOLOGY ORD ERABLES [facility] ([facility]) * (ABNORMAL) PAP IMAGE-GUIDED LIQUID BASE W HPV (09/16/2016 12:00 AM MILL ROLL OPERATOR) Pap Image-Guided Liquid-Based with HPV Accession No: [id number] Specimen:Endocervi janusz ThinPrep Slides:1 SPECIMEN ADEQUACY: SATISFACTORY FOR EVALUATION - Endocervical / Transformation Zone Component Present INTERPRETATION: NEGATIVE FOR INTRAEPITHELIAL LESION OR MALIGNANCY - Reactive Cellular Changes NOTE(S): HPV DIRECT - HPV Result to Follow This specimen was evaluated by the ThinPrep Imaging System along with an additional manual rescreening by a epic beacon analyst and/or pathologist Initial Evaluation performed by Adelfo BUNCH(ASCP). Electronically signed 09/23/2016 Interpretation performed by Arthur Ramos MD. Electronically signed 09/26/2016 (A) [facility] ([place]) Endocervical 09/16/2016 09/21/2016 10:05 AM MILL ROLL OPERATOR Yajaira Don MD LAB - PATHOLOGY/CYTO LOGY ORDERABLES [facility] ([place]) from Last 3 Months [...] 5:24 PM 04/24/2014 7:49 PM Care Teams Stationary Steam Engineer Relationship Specialty Start Date End Date Kathryn Redmond MD [address] [place] [address] PCP - General 04/04/18
--- OUTSIDE RECORDS SUMMARY | 2024-11-21 10:05 | XMS_ITS | Referral Summary ---
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 [...] on file Legal Sex Female 10:03 AM INTERACTIVE MARKETING STRATEGIST Gender Identity Female 06/09/2020 9:04 PM CDT [...] Plan of Treatment Not on file Insurance [facility] Advance Directives For more information, please contact: [phone] * Full Code (Latest Code Status on File) Date Activated Date Inactivated Comments 05/27/2021 4:46 PM 05/28/2021 11:22 PM * Full Code Date Activated Date Inactivated Comments 02/24/2021 10:08 AM 02/24/2021 4:04 PM Care Teams Ultrasound Tester Relationship Specialty Start Date End Date Kathryn Redmond MD [address] [place] [address] [address] [place] [address] PCP - General Family Medicine 06/03/20
--- OUTSIDE RECORDS SUMMARY | 2024-11-21 10:05 | XMS_ITS | Clinical Summary ---
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
--- OUTSIDE RECORDS SUMMARY | 2024-11-21 10:05 | XMS_ITS | Patient Health Summary ---
Author Organization [facility] Address [address] [place] [address] Care Team Providers Care Transit Operations Supervisor Name Role Phone Kathryn Redmond MD Primary Care Provider [phone] Note from [facility],non-owned Affiliates and Associated Physician Practices is amultiple site organization consisting of ambulatory clinics and hospital sitesin [place], [place], [place] and [place]. This disclosure is being madepursuant to the Care Everywhere program and may not contain all information available regarding this patient. Last updated 18.[facility] Allergies * Sulfa Drugs(Urticaria) Medications * Be [...] blood pressure affecting in third trimester, antepartum ([facility]) * URINE MICROSCOPIC ONLY REFLEX TO CULTURE(Performed 08/02/2017) Performed for Elevated blood pressure affecting in third trimester, antepartum ([facility]) * COMPREHENSIVE METABOLIC PANEL(Performed 08/02/2017) Performed for Elevated blood pressure affecting in third trimester, antepartum ([facility]) * CBC W AUTO DIFFERENTIAL(Performed 08/02/2017) Performed for Elevated blood pressure affecting in third trimester, antepartum ([facility]) * URINALYSIS REFLEX MICROSCOPIC REFLEX CULTURE(Performed 08/02/2017) Performed for Elevated blood pressure affecting in third trimester, antepartum ([facility]) * PROTEIN CREATININE RATIO URINE RANDOM PNL(Performed 08/02/2017) Performed for Elevated blood pressure affecting in third trimester, antepartum ([facility]) * CULTURE URINE(Performed 08/02/2017) Performed for Elevated blood pressure affecting in third trimester, antepartum ([facility]) * CULTURE URINE(Performed 07/24/2017) * [...] for Supervision of high-risk , third trimester ([facility]) * GLUCOSE TOLERANCE TEST 4 [...] Hx of multiple organ failure, Obesity complicating ([facility]) * NEURAXIAL BLOCK(Performed 05/07/2014) * [...] for Supervision of high-risk , third trimester ([facility]) * URIC ACID BLOOD(Performed 04/28/2014) Performed for Supervision of high-risk , third trimester ([facility]) * COMPREHENSIVE METABOLIC PANEL(Performed 04/28/2014) Performed for Supervision of high-risk , third trimester ([facility]) * CBC W AUTO DIFFERENTIAL(Performed 04/28/2014) Performed for Supervision of high-risk , third trimester ([facility]) * PROTEIN CREATININE RATIO URINE RANDOM PNL(Performed 04/28/2014) Performed for Supervision of high-risk , third trimester ([facility]) * GLUCOSE PROTEIN KETONE URINE - POINT OF CAR(Performed 04/27/2014) * URINALYSIS REFLEX MICROSCOPIC REFLEX CULTURE(Performed 04/27/2014) Performed for Supervision of high-risk , third trimester ([facility]) * CULTURE URINE(Performed 04/27/2014) Performed for Supervision of high-risk , third trimester ([facility]) * LAB RESULTS ORDER(Performed 04/25/2014) * LAB RESULTS ORDER(Performed 04/25/2014) * CREATININE CLEARANCE URINE TIMED + BLOOD(Performed 04/23/2014) Performed for Supervision of high-risk , third trimester ([facility]) * CREATININE URINE TIMED(Performed 04/23/2014) Performed for Supervision of high-risk , third trimester ([facility]) * PROTEIN URINE TIMED QUANTITATIVE(Performed 04/23/2014) Performed for Supervision of high-risk , third trimester ([facility]) * PROTEIN CREATININE RATIO URINE TIMED PNL(Performed 04/23/2014) Performed for Supervision of high-risk , third trimester ([facility]) * SONOGRAM - COMPLETE(Performed 04/23/2014) * URINE MICROSCOPIC ONLY REFLEX TO CULTURE(Performed 04/22/2014) Performed for Supervision of high-risk , third trimester ([facility]) * URINALYSIS REFLEX MICROSCOPIC REFLEX CULTURE(Performed 04/22/2014) Performed for Supervision of high-risk , third trimester ([facility]) * CULTURE URINE(Performed 04/22/2014) Performed for Supervision of high-risk , third trimester ([facility]) * TYPE + SCREEN PANEL(Performed 04/22/2014) * URIC ACID BLOOD(Performed 04/22/2014) Performed for Supervision of high-risk , third trimester ([facility]) * LDH BLOOD(Performed 04/22/2014) Performed for Supervision of high-risk , third trimester ([facility]) * COMPREHENSIVE METABOLIC PANEL(Performed 04/22/2014) Performed for Supervision of high-risk , third trimester ([facility]) * CBC W AUTO DIFFERENTIAL(Performed 04/22/2014) Performed for Supervision of high-risk , third trimester ([facility]) * URINALYSIS - POINT OF CARE (AMB) SLU(Performed 04/22/2014) * URINALYSIS REFLEX MICROSCOPIC REFLEX CULTURE(Performed 04/19/2014) Performed for History of pre-eclampsia in prior , currently , third trimester ([facility]) * CULTURE URINE(Performed 04/19/2014) Performed for History of pre-eclampsia in prior , currently , third trimester ([facility]) * GLUCOSE PROTEIN KETONE URINE - POINT OF CAR(Performed 04/19/2014) Performed for History of pre-eclampsia in prior , currently , third trimester ([facility]) * PROTEIN CREATININE RATIO URINE RANDOM PNL(Performed 04/19/2014) Performed for History of pre-eclampsia in prior , currently , third trimester ([facility]) * LDH BLOOD(Performed 04/19/2014) Performed for History of pre-eclampsia in prior , currently , third trimester ([facility]) * URIC ACID BLOOD(Performed 04/19/2014) Performed for History of pre-eclampsia in prior , currently , third trimester ([facility]) * COMPREHENSIVE METABOLIC PANEL(Performed 04/19/2014) Performed for History of pre-eclampsia in prior , currently , third trimester ([facility]) * CBC W AUTO DIFFERENTIAL(Performed 04/19/2014) Performed for History of pre-eclampsia in prior , currently , third trimester ([facility]) * GLUCOSE PROTEIN KETONE URINE [...] MICROSCOPIC NO CULTURE(Performed 07/29/2009) Performed for [facility] * CREATININE CLEARANCE URINE TIMED + [...] Strep A Internal Control Present Lot # [id number] Expiration Date 08/17/20 Throat ENTIRE THROAT (SURFACE REGION OF NECK) / Unknown 03/13/2019 Yu Blackmon GAMES MANAGER[employer]BER[employer] SALES AGENT LAB - POINT OF CA RE ORDERABLES * IMAGING/RADIOLOGY/XRAY RESULTS ORDER (08/07/2017 11:11 PM TUBE SPLICER) Only the most recent of4 resultswithin the time period is included. Anatomical Region Laterality Modality Other Narrative 08/07/2017 11:11 PM TUBE SPLICER Ordered by an unspecified provider. Scanned Document IMAGING * GLUCOSE - POINT OF CARE (08/06/2017 8:14 AM TUBE SPLICER) Only the most recent of5 resultswithin the time period is included. [facility] Glucose WB/POC 76 70 - 106 mg/dL 08/06/2017 11:04 AM [facility] Blood BLOOD SPECIMEN / Unknown 08/06/2017 8:14 AM TUBE SPLICER 08/06/2017 11:04 AM TUBE SPLICER Sanjeev Diaz MD LAB - POINT OF CARE ORDERABLES [facility] [address] [place] [address] * (ABNORMAL) CBC W AUTO DIFFERENTIAL (08/05/2017 5:45 AM TUBE SPLICER) Only the most recent of14 resultswithin the time period is included. [facility] WBC 9.2 4.4 - 10.7 x10E9/L 08/05/2017 6:09 AM [facility] WBC Corrected x10E9/L 08/05/2017 6:09 AM [facility] RBC 3.11(L) 3.80 - 5.20 x10E12/L 08/05/2017 6:09 AM [facility] Hemoglobin 9.4(L) 12.0 - 15.6 gm/dL 08/05/2017 6:09 AM [facility] Hematocrit 27.5(L) 35.9 - 45.5 % 08/05/2017 6:09 AM [facility] MCV 88.4 80.7 - 98.3 fl 08/05/2017 6:09 AM [facility] MCH 30.2 26.7 - 34.0 pg 08/05/2017 6:09 AM [facility] MCHC 34.2 30.8 - 35.9 gm/dL 08/05/2017 6:09 AM [facility] Platelet Count 168 153 - 416 x10E9/L 08/05/2017 6:09 AM [facility] RDW-CV 14.4 12.1 - 14.9 % 08/05/2017 6:09 AM [facility] MPV 11.1 9.4 - 12.9 fl 08/05/2017 6:09 AM [facility] Neutrophils % 69.8 44.0 - 73.0 % 08/05/2017 6:09 AM [facility] Lymphocytes % 20.8 20.0 - 43.0 % 08/05/2017 6:09 AM [facility] Monocytes % 6.4 5.0 - 13.0 % 08/05/2017 6:09 AM [facility] Eosinophils % 2.3 0.0 - 6.0 % 08/05/2017 6:09 AM [facility] Basophils % 0.3 0.0 - 2.0 % 08/05/2017 6:09 AM [facility] Immature Granulocytes 0.4 0 - 1 % 08/05/2017 6:09 AM [facility] Neutrophil Absolute 6.38 2.01 - 7.14 x10E9/L 08/05/2017 6:09 AM [facility] Lymphocytes Absolute 1.90 1.07 - 3.94 x10E9/L 08/05/2017 6:09 AM [facility] Monocytes Absolute 0.59 0.26 - 1.07 x10E9/L 08/05/2017 6:09 AM [facility] Eosinophils Absolute 0.21 0 - 0.47 x10E9/L 08/05/2017 6:09 AM [facility] Basophils Absolute 0.03 0 - 0.08 x10E9/L 08/05/2017 6:09 AM [facility] Immature Granulocytes Absolute 0.04 0.00 - 0.06 x10E9/L 08/05/2017 6:09 AM [facility] nRBC Auto 0 /100 WBC 08/05/2017 6:09 AM [facility] Blood BLOOD SPECIMEN / Unknown Lab Venipuncture / Unknown 08/05/2017 5:45 AM TUBE SPLICER 08/05/2017 6:03 AM TUBE SPLICER Edward Taveras MD LAB - HEMATOLOGY ORD ERABLES [facility] [address] [place] [address] * NEURAXIAL BLOCK (08/04/2017 10:10 PM TUBE SPLICER) Narrative Macario Woodward DO - 08/04/2017 10:10 PM TUBE SPLICER Ricky Ybarra, GAMES MANAGER-TANYARD WORKER 08/04/2017 8:38 PM Neuraxial Block Note Pre-Procedure: [...] GASES CORD ROSALIO (ISTAT) (08/04/2017 8:53 PM TUBE SPLICER) pH Cord Venous POCT 7.36 7.28 - 7.40 pH 08/04/2017 8:58 PM TUBE SPLICER [facility] pCO2 Cord Venous POCT 41 35 - 45 mmHg 08/04/2017 8:58 PM TUBE SPLICER [facility] pO2 Cord Venous POCT 19(L) 22 - 33 mmHg 08/04/2017 8:58 PM [facility] HCO3 Cord Arterial POCT 23 22 - 24 mmol/L 08/04/2017 8:58 PM TUBE SPLICER [facility] BE Cord Venous POCT Calc -2 -6.4 - 1.6 mmol/L 08/04/2017 8:58 PM [facility] TCO2 Cord Venous POCT 24 22 - 30 mmol/L 08/04/2017 8:58 PM TUBE SPLICER [facility] O2 Saturation % Cord Venous Calc POCT 27 % 08/04/2017 8:58 PM TUBE SPLICER [facility] Site CORD ROSALIO 08/04/2017 8:58 PM TUBE SPLICER [facility] Sample iSTAT CORD V 08/04/2017 8:58 PM TUBE SPLICER [facility] Blood CORD BLOOD SPECIMEN / Unknown 08/04/2017 8:53 PM TUBE SPLICER 08/04/2017 8:58 PM TUBE SPLICER Sanjeev Diaz MD LAB - POINT OF CARE ORDERABLES [facility] [address] [place] [address] * (ABNORMAL) BLOOD GASES CORD ART (ISTAT) (08/04/2017 8:49 PM TUBE SPLICER) Only the most recent of2 resultswithin the time period is included. pH Cord Arterial POCT 7.26 7.20 - 7.34 pH 08/04/2017 8:58 PM TUBE SPLICER [facility] pCO2 Cord Arterial POCT 54.2 45 - 55 mmHg 08/04/2017 8:58 PM [facility] pO2 Cord Arterial POCT 11(L) 12 - 25 mmHg 08/04/2017 8:58 PM [facility] HCO3 Cord Arterial POCT 24.5(H) 22 - 24 mmol/L 08/04/2017 8:58 PM [facility] BE Cord Arterial POCT -3(L) -2.9 - 8.3 mmol/L 08/04/2017 8:58 PM [facility] TCO2 Cord Arterial POCT 26 mmol/L 08/04/2017 8:58 PM [facility] O2 Saturation Cord Art % Calc POCT 9 % 08/04/2017 8:58 PM TUBE SPLICER [facility] Site CORD ART 08/04/2017 8:58 PM [facility] Sample iSTAT CORD A 08/04/2017 8:58 PM [facility] Blood CORD BLOOD SPECIMEN / Unknown 08/04/2017 8:49 PM TUBE SPLICER 08/04/2017 8:58 PM TUBE SPLICER Sanjeev Diaz MD LAB - POINT OF CARE ORDERABLES [facility] [address] [place] [address] * GROSS + MICRO EXAM (STL) (08/04/2017 8:46 PM TUBE SPLICER) Only the most recent of2 resultswithin the time period is included. Case Report Surgical Pathology Report Case: [id number] Authorizing Provider: Maty Barrera MD Collected: 08/04/2017 08:46 PM Ordering Location: [facility] Received: 08/07/2017 08:17 AM Pathologist: Darvin Maurice MD Specimen: Placenta 08/09/2017 10:41 AM TUBE SPLICER [facility] Final Diagnosis 1. Placenta, delivery: -- Third trimester placenta -- Focal mild chronic villitis -- No evidence of chorioamnionitis -- 3-vessel umbilical cord with no evidence of vasculitis or funisitis SSD 08/09/2017 10:41 AM TUBE SPLICER [facility] Gross Description The specimen is received [...] Cut surface reveals soft, purple-pink placental parenchyma. Yard Switcher sections are submitted as follows: A1: Umbilical cord, membranes, and membranes with vessels A2/A3: Placenta MR/arm 08/09/2017 10:41 AM [facility] Microscopic Description Placental disc, membrane, and umbilical cord examined. 08/09/2017 10:41 AM [facility] Disclaimer All histochemical and/or immunohistochemical results are interpreted with controls that demonstrate appropriate staining reactions before reporting results. Note on use of immunocytochemistry reagents: This test was developed and its performance characteristic determined by [facility], Department of Laboratory Medicine. It has not been cleared or approved by the U.S. Food and Drug Administration (FDA). The FDA has determined that such clearance or approval is not necessary. The test is used for clinical purpose. It should not be regarded as investigational or for research. This laboratory is certified to perform high complexity testing. 08/09/2017 10:41 AM [facility] Embedded Images 08/09/2017 10:41 AM [facility] Pathology/Cytolo gy ENTIRE PLACENTA / Unknown 08/04/2017 8:46 PM TUBE SPLICER 08/07/2017 8:17 AM TUBE SPLICER Maty Barrera MD LAB - PATHOLOGY/CYTO LOGY ORDERABLES [facility] [address] [place] [address] * TYPE + SCREEN PANEL (08/04/2017 5:23 PM TUBE SPLICER) Only the most recent of5 resultswithin the time period is included. ABO O 08/04/2017 6:20 PM [facility] Rh Type Positive 08/04/2017 6:20 PM [facility] Comment:History check perfor med. No retype required. Antibody Screen Negative 08/04/2017 6:20 PM [facility] BLOOD [facility] Blood Bank BLOOD SPECIMEN / Unknown Venipuncture / Unknown 08/04/2017 5:23 PM TUBE SPLICER 08/04/2017 5:33 PM TUBE SPLICER Laurel Joy MD LAB - BLOOD BANK ORD ERABLES [facility] [address] [place] [address], [facility] [place] * (ABNORMAL) COMPREHENSIVE METABOLIC PANEL (08/04/2017 5:23 PM TUBE SPLICER) Only the most recent of12 resultswithin the time period is included. Glucose 97 74 - 106 mg/dL 08/04/2017 6:00 PM [facility] Sodium 139 136 - 145 mmol/L 08/04/2017 6:00 PM [facility] Potassium 3.5 3.5 - 5.1 mmol/L 08/04/2017 6:00 PM [facility] Chloride 107 98 - 107 mmol/L 08/04/2017 6:00 PM [facility] CO2 19(L) 22 - 31 mmol/L 08/04/2017 6:00 PM [facility] Calcium 9.2 8.5 - 10.1 mg/dL 08/04/2017 6:00 PM [facility] Anion Gap 13 8 - 16 mmol/L 08/04/2017 6:00 PM [facility] BUN 6(L) 7 - 21 mg/dL 08/04/2017 6:00 PM [facility] Creatinine 0.51 0.50 - 1.30 mg/dL 08/04/2017 6:00 PM [facility] Alkaline Phosphatase 108 38 - 126 U/L 08/04/2017 6:00 PM [facility] ALT 18 13 - 61 U/L 08/04/2017 6:00 PM [facility] AST 11 5 - 40 U/L 08/04/2017 6:00 PM [facility] Protein Total 6.8 6.4 - 8.2 gm/dL 08/04/2017 6:00 PM [facility] Albumin 2.8(L) 3.4 - 5.0 gm/dL 08/04/2017 6:00 PM [facility] Bilirubin Total 0.2 0.2 - 1.0 mg/dL 08/04/2017 6:00 PM [facility] eGFR by MDRD >60 >60 mL/min/1.7 3m2 08/04/2017 6:00 PM [facility] eGFR by MDRD >60 >60 mL/min/1.7 3m2 08/04/2017 6:00 PM [facility] Blood BLOOD SPECIMEN / Unknown Venipuncture / Unknown 08/04/2017 5:23 PM TUBE SPLICER 08/04/2017 5:33 PM TUBE SPLICER Laurel Joy MD LAB - CHEMISTRY [place] Performing Organization Address City/[facility]/ZIP Co de Phone Number [facility] [address] [place] [address] * CULTURE STREP B (08/04/2017 3:50 PM TUBE SPLICER) Only the most recent of3 resultswithin the time period is included. Culture SEE NOTE [facility]) Comment: STREPTOCOCCUS, GROUP B CULTURE MICRO NUMBER: [id number] TEST STATUS: FINAL SPECIMEN SOURCE: VAGINA SPECIMEN QUALITY: ADEQUATE RESULT: No group B Streptococcus isolated REPORT COMMENT: SPECIMEN TYPE->VAGINA Test Performed at: [facility] [id number] NANCY VERMA MD Vagina 08/04/2017 3:50 PM TUBE SPLICER 08/05/2017 2:50 AM TUBE SPLICER Narrative [facility] ([facility]) - 08/07/2017 9:00 AM TUBE SPLICER Specimen Type->Vagina Rajiv Kate MD LAB - MICROBIOLOGY O RDERABLES Performing Organization Address [facility] Co de Phone Number [facility]) * URINALYSIS - POINT OF CARE (AMB) U (08/04/2017) Only the most recent of21 resultswithin the time period is included. Glucose UA n [facility] Bilirubin UA POCT n [facility] Ketones UA POCT moderate [facility] Specific Grimes UA 1.025 [facility] Blood Urine POCT n [facility] pH UA 5 [facility] Protein UA 30 [facility] Urobilinogen UA n [facility] Nitrite UA n [facility] WBC UA trace [facility] Urine specimen (specimen) 08/04/2017 Rajiv Kate MD LAB - POINT OF CARE ORDERABLES [facility] * NON-STRESS TEST (08/02/2017 4:24 PM TUBE SPLICER) Anatomical Region Laterality Modality Other Narrative 08/02/2017 4:24 PM TUBE SPLICER Urszula Gonzáles RN 08/02/2017 1:57 PM Name: Arianna Goode Date of : 1985 Today's Date: 08/02/2017 [facility] RESULTS ([place]) OBJECTIVE FINDINGS , , , BP: 126/78 [facility] Indication(s): Pre-eclampsia Uterine Irritability: Yes Contractions: Not present OBJECTIVE FINDINGS Movement: Present Monitoring Mode: External Baseline: 145 BPM Variability: Moderate Decelerations: None Accelerations: Yes OTHER INFORMATION Urszula Gonzáles RN Edward [employer] SALES AGENT M ORDERABLES * (ABNORMAL) URINALYSIS MICROSCOPIC ONLY W/REFLEX CULTURE (08/02/2017 12:36 PM TUBE SPLICER) Only the most recent of2 resultswithin the time period is included. Reflex Status Culture to follow 08/02/2017 12:58 PM TUBE SPLICER [facility] RBC UA 11-20(A) 0-5, None Seen # /hpf 08/02/2017 12:58 PM TUBE SPLICER [facility] WBC UA 21-50(A) 0-5, None Seen # /hpf 08/02/2017 12:58 PM TUBE SPLICER [facility] Bacteria UA 2+(A) None Seen 08/02/2017 12:58 PM TUBE SPLICER [facility] Squamous Epithelial Cells 11-20(A) None Seen, 0-2, 3-5 /hpf 08/02/2017 12:58 PM TUBE SPLICER [facility] Mucus UA 3+ /LPF 08/02/2017 12:58 PM TUBE SPLICER [facility] Urine URINE SPECIMEN OBTAINED BY CLEAN CATCH PROCEDURE / Unknown Collection / Unknown 08/02/2017 12:36 PM TUBE SPLICER 08/02/2017 12:41 PM TUBE SPLICER Narrative [facility] - 08/02/2017 12:58 PM TUBE SPLICER Edward [employer] SALES AGENT LAB - URINALYSIS ORDERABLES [facility] [address] [place], [place] [id number] * (ABNORMAL) URINALYSIS ROUTINE W/REFLEX TO CULTURE (08/02/2017 12:36 PM TUBE SPLICER) Only the most recent of6 resultswithin the time period is included. Color UA Yellow Straw, Yellow 08/02/2017 12:58 PM TUBE SPLICER [facility] Clarity UA Cloudy(A) Clear 08/02/2017 12:58 PM TUBE SPLICER [facility] Glucose UA Negative Negative 08/02/2017 12:58 PM TUBE SPLICER [facility] Bilirubin UA Negative Negative 08/02/2017 12:58 PM [facility] Ketone UA Trace(A) Negative 08/02/2017 12:58 PM [facility] Specific Grimes UA 1.020 1.005 - 1.030 08/02/2017 12:58 PM [facility] Blood UA 2+(A) Negative 08/02/2017 12:58 PM [facility] pH UA 6.0 5.0 - 8.0 pH 08/02/2017 12:58 PM [facility] Protein UA 1+(A) Negative 08/02/2017 12:58 PM [facility] Urobilinogen UA Negative Negative mg/dL 08/02/2017 12:58 PM [facility] Nitrite UA Negative Negative 08/02/2017 12:58 PM [facility] Leukocyte UA 3+(A) Negative 08/02/2017 12:58 PM [facility] Urine Microscopy Urine microscopy to follow 08/02/2017 12:58 PM [facility] Reflex Status Culture to follow 08/02/2017 12:58 PM [facility] Urine URINE SPECIMEN OBTAINED BY CLEAN CATCH PROCEDURE / Unknown Collection / Unknown 08/02/2017 12:36 PM TUBE SPLICER 08/02/2017 12:41 PM TUBE SPLICER Narrative [facility] - 08/02/2017 12:58 PM TUBE SPLICER Edward WHEELER LAB - URINALYSIS ORDERABLES [facility] [address] [place] [address] * CULTURE URINE (08/02/2017 12:36 PM TUBE SPLICER) Only the most recent of7 resultswithin the time period is included. Culture Urine <10,000 CFU/mL urogenital wilbert GARTH 08/03/2017 10:15 AM TUBE SPLICER [facility] Urine URINE SPECIMEN OBTAINED BY CLEAN CATCH PROCEDURE / Unknown Collection / Unknown 08/02/2017 12:36 PM TUBE SPLICER 08/02/2017 12:41 PM TUBE SPLICER Edwardsarah Chong [facility] LAB - MICROBIOLOG Y ORDERABLES Performing Organization Address City/[facility]/ZIP Co de Phone Number [facility] [address] [place], [place] [address] [phone] * PROTEIN CREATININE RATIO URINE RANDOM PNL (08/02/2017 12:36 PM TUBE SPLICER) Only the most recent of4 resultswithin the time period is included. Protein Urine 28.9 mg/dL 08/02/2017 1:14 PM TUBE SPLICER [facility] Creatinine Urine 150 mg/dL 08/02/2017 1:14 PM TUBE SPLICER [facility] Protein/Creatin ine Ratio Urine 0.19 08/02/2017 1:14 PM TUBE SPLICER [facility] Urine URINE SPECIMEN OBTAINED BY CLEAN CATCH PROCEDURE / Unknown Collection / Unknown 08/02/2017 12:36 PM TUBE SPLICER 08/02/2017 12:41 PM TUBE SPLICER Edward Hardwick Castillo [facility] - URINE CHEMI STRY ORDERABLES Performing Organization Address [facility] Co de Phone Number [facility] [address] [place] [address] * URIC ACID BLOOD (07/24/2017 11:49 AM TUBE SPLICER) Only the most recent of8 resultswithin the time period is included. Uric acid 5.6 2.5 - 7.0 mg/dL [facility] ([facility]) Comment: Therapeutic target for gout patients: <6.0 mg/dL Test Performed at: [facility] [place] [address] [place] [address] MATY HSIEH DO,MPH 07/24/2017 11:4 9 AM TUBE SPLICER 07/24/2017 11:49 AM TUBE SPLICER Lexi Xie MD LAB - CHEMISTRY [place] Performing Organization Address [facility] de Phone Number [facility] ([facility]) * (ABNORMAL) GLUCOSE TOLERANCE TEST 4 SPECIMENS (04/25/2017 7:28 AM CDT) Time 1 FASTING [facility] ([facility]) Specimen 1 97 65 - 99 mg/dL [facility] ([facility]) Time 2 1 HOUR [facility] ([facility]) Specimen 2 207(H) mg/dL [facility] ([facility]) TIME 3 2 HOURS [facility] ([facility]) Specimen 3 158 mg/dL [facility] ([facility] Time 4 3 HOURS [facility] Specimen 4 100 mg/dL [facility] ([facility]) Comment See Below [facility] ([facility]) Comment: [place] Diabetes Association Diagnostic Criteria for Diabetes Mellitus Glucose Value (mg/dL) Interpretation Fasting 1 Hr 2 Hr Tolerance Tolerance --------- --------- --------- Normal <100 Not Established <140 Impaired Fasting 100-125 Impaired Tolerance 140-199 Diabetes >WR=661* >LN=658* * Must be confirmed by testing on a subsequent day. REPORT COMMENT: FASTING:YES Test Performed at: [employer] [facility] [address] [place] [address] MATY HSIEH DO,MPH 04/25/2017 7:28 AM CDT 04/25/2017 7:29 AM CDT Kelsey Samaniego MD LAB - CHEMISTRY [place] Performing Organization Address [facility] de Phone Number [facility] ([facility]) * HEMOGLOBIN A1C (04/14/2017 11:00 AM CDT) Hemoglobin A1c 4.7 <5.7 % of total Hgb [facility] ([facility]) Comment: For the purpose of screening for the presence of diabetes: <5.7% Consistent with the absence of diabetes 5.7-6.4% Consistent with increased risk for diabetes (prediabetes) > or =6.5% Consistent with diabetes This assay result is consistent with a decreased risk of diabetes. Currently, no consensus exists regarding use of hemoglobin A1c for diagnosis of diabetes in children. According to [place] Diabetes Association (ADA) guidelines, hemoglobin A1c <7.0% represents optimal control in non- diabetic patients. Different metrics may apply to specific patient populations. Standards of Medical Care in Diabetes(ADA). REPORT COMMENT: PREFERRED LAB:->[facility] Test Performed at: [facility] [id number] [place] [address] MATY HSIEH DO,MPH 04/14/2017 11:0 0 AM CDT 04/14/2017 11:01 AM CDT Liana Dey MD LAB - CHEMISTR Y ORDERABLES Performing Organization Address [facility] Co de Phone Number [facility] ([facility]) * (ABNORMAL) GLUCOSE CHALLENGE (04/14/2017 11:00 AM CDT) Only the most recent of3 resultswithin the time period is included. Pathologist [facility] Glucose, 50 gm screen 142(H) <135 mg/dL [facility] ([facility]) Comment: One hour value of > or = 135 mg/dL indicates the need for a diagnostic 75 g dose 2-hour or 100 g dose 3-hour oral glucose tolerance test; patient fasting is required. Test Performed at: [facility] [address] [place] [address] MATY HSIEH DO,MPH 04/14/2017 11:0 0 AM CDT 04/14/2017 11:01 AM CDT Liana Dey MD LAB - CHEMISTR Y ORDERABLES Performing Organization Address [facility] Co de Phone Number [facility] ([facility]) * HIV-1 HIV-2 ANTIGEN/ANTIBODY (02/23/2017 10:03 AM CDT) [facility] HIV Antigen/Antibody 4th Generation NON-REACT CHRISTIAN NON-REACT CHRISTIAN [facility] ([facility]) Comment: HIV-1 antigen and HIV-1/HIV-2 antibodies were [...] purpose. For additional information please refer to http://Acsis.Transfluent/faq/UKO963 (This link is being provided for informational/ educational purposes only.) The performance of this assay has not been clinically validated in patients less than 2 years old. Test Performed at: [facility] [id number] [facility] [place] [address] MATY HSIEH DO,MPH 02/23/2017 10:0 3 AM CDT 02/23/2017 10:03 AM CDT Damien Gandhi MD LAB - HEMATOLOGY ORD LONNIE Performing Organization Address [facility] de Phone Number [facility] ([facility]) * TSH+FREE T4 PANEL (02/23/2017 10:03 AM CDT) TSH 1.78 mIU/L [facility] ([facility]) Comment: Reference Range > or = 20 Years 0.40-4.50 Ranges First trimester 0.26-2.66 Second trimester 0.55-2.73 Third trimester 0.43-2.91 T4 Free 1.2 0.8 - 1.8 ng/dL [facility] ([facility]) Comment: Test Performed at: [facility] [address] [employer] [facility] [place] [address] MATY HSIEH DO,MPH 02/23/2017 10:0 3 AM CDT 02/23/2017 10:03 AM CDT Damien Gandhi MD LAB - CHEMISTRY [place] Performing Organization Address [facility] Co de Phone Number [facility] ([facility]) * (ABNORMAL) PROFILE I W/ HBSAG (02/23/2017 10:03 AM CDT) Only the most recent of2 resultswithin the time period is included. WBC 9.9 3.8 - 10.8 Thousand /uL [facility] ([facility]) RBC 3.88 3.80 - 5.10 Million/ uL [facility] ([facility]) Hemoglobin 11.6(L) 11.7 - 15.5 g/dL [facility] ([facility]) Hematocrit 33.9(L) 35.0 - 45.0 % [facility] ([facility]) MCV 87.4 80.0 - 100.0 fL [facility] ([facility]) MCH 29.9 27.0 - 33.0 pg [facility] ([facility]) MCHC 34.2 32.0 - 36.0 g/dL [facility] ([facility]) RDW-CV 13.1 11.0 - 15.0 % [facility] ([facility]) Platelet 216 140 - 400 Thousand /uL [facility] ([facility]) MPV 10.1 7.5 - 12.5 fL [facility] ([facility]) Neutrophils Absolute 6,841 1,500 - 7,800 cells/uL [facility] ([facility]) Lymphocyte Absolute Manual 2,099 850 - 3,900 cells/uL [facility] ([facility]) Monocytes Absolute 485 200 - 950 cells/uL [facility] ([facility]) Eosinophils Absolute 426 15 - 500 cells/uL [facility] ([facility]) Basophil Absolute Manual 50 0 - 200 cells/uL [facility] ([facility]) Neutrophils % 69.1 % [facility]) Lymphocytes % 21.2 % [facility] ([facility]) Monocytes % 4.9 % [facility] ([facility]) Eosinophils % 4.3 % [facility] ([facility]) Basophil % 0.5 % [facility] ([facility]) Antibody Screen NO ANTIBODIES DETECTED [facility] ([facility]) Comment: Reference range No antibodies detected This assay is a screening test for the detection of red blood cell antibodies. The test is not to be used for pretransfusion screening or for the medical management of an alloimmunized . ABO O [facility] ([facility]) Rh Type RH(D) POSITIVE [facility] ([facility]) RPR NON-REACTIVE NON-REAC TIVE [facility] ([facility]) Hepatitis B Virus Surface Antigen NON-REACTIVE NON-REAC TIVE [facility] ([facility]) Rubella Antibody Immune Status 4.53 index [facility] ([facility]) Comment: Index Interpretation ----- <0.90 Not consistent with Immunity 0.90-0.99 Equivocal > or = 1.00 Consistent with Immunity The presence of rubella IgG antibody suggests immunization or past or current infection with rubella virus. Test Performed at: [place] [address] MATY HSIEH DO,MPH 02/23/2017 10:0 3 AM CDT 02/23/2017 10:03 AM CDT Narrative [facility] ([facility]) - 02/24/2017 4:00 PM CDT Preferred Lab:->[facility] Damien Gandhi MD LAB - CHEMISTRY ORDE RABLES Performing Organization Address [facility] Co de Phone Number [facility] ([facility]) * PROTEIN CREATININE RATIO URINE TIMED PNL (02/23/2017 10:03 AM CDT) Only the most recent of4 resultswithin the time period is included. Creatinine 24 Hour Urine 2.30 0.63 - 2.50 g/24 h [facility] ([facility]) Protein 24 Hour Urine 63 < OR = 84 mg/g creat [facility] ([facility]) Protein 24 Hour Urine 144 <150 mg/24 h [facility] ([facility]) Comment: TOTAL URINE VOLUME: 1200/24 REPORT COMMENT: PREFERRED LAB:->[facility]; HEIGHT (INCHES)->63; WEIGHT (LBS)->25 Test Performed at: [place] [address] MATY HSIEH DO,MPH Urine specimen (specimen) 02/23/2017 10:03 AM CDT 02/23/2017 10:03 AM CDT Damien Gandhi MD LAB - URINE CHEMISTR Y ORDERABLES Performing Organization Address [facility]/ZIP Co de Phone Number [facility] ([facility]) * (ABNORMAL) CREATININE CLEARANCE URINE TIMED + BLOOD (02/23/2017 10:03 AM CDT) Only the most recent of4 resultswithin the time period is included. Creatinine 0.55 0.50 - 1.10 mg/dL [facility] ([facility]) eGFR non- 126 > OR = 60 mL/min/1.7 3m2 [facility] ([facility]) eGFR 146 > OR = 60 mL/min/1.7 3m2 [facility] ([facility]) Creatinine 24 Hour Urine 2.30 0.63 - 2.50 g/24 h [facility] ([facility]) Body Surface Area 2.13 [facility] ([facility]) Creatinine Clearance 236(H) 75 - 115 mL/min [facility] ([facility]) Patient Height 5 ft [facility] ([facility]) Patient Height (Inches) 3 in [facility] ([facility]) WEIGHT POUNDS (SLH) 250 [facility] ([facility]) Comment: Test Performed at: [employer] [address] MATY HSIEH DO,MPH Urine specimen (specimen) (Urine, unspecified source) 02/23/2017 10:03 AM CDT 02/23/2017 10:03 AM CDT Narrative [facility] ([facility]) - 02/24/2017 4:00 PM CDT Height (inches)->63 Weight (lbs)->250 Damien Gandhi MD LAB - URINE CHEMISTR Y ORDERABLES [facility] ([facility]) * CHLAMYDIA+GC MAMI PAP VIAL (02/22/2017 3:00 PM CDT) Chlamydia trachomatis RNA TMA NOT DETECTED NOT DETECTED [facility] ([facility]) Neisseria gonorrhoeae RNA TMA NOT DETECTED NOT DETECTED [facility] ([facility]) See Note [facility] ([facility]) Comment: This test was performed using the APTIMA COMBO2 Assay ([employer] The analytical performance characteristics of this assay, when used to test [employer] specimens have been determined by [employer]. NO COLLECTION DATE RECEIVED. WE HAVE USED THE DATE THE SPECIMEN WAS RECEIVED BY THIS LABORATORY THE COLLECTION DATE. IF THIS IS INCORRECT, PLEASE CONTACT CLIENT SERVICES. PHONE NUMBER: [phone] Test Performed at: [employer] [facility] [place] [address] MATY HSIEH DO,MPH Urine specimen (specimen) 02/22/2017 3:00 PM CDT 02/22/2017 5:42 AM CDT Narrative [employer] ([facility]) - 02/22/2017 3:00 PM CDT Specimen Type->Urine Damien Gandhi MD LAB - MICROBIOLOGY O RDERABLES Performing Organization Address City/[facility]/ZIP Co de Phone Number [facility] ([facility]) * PROLACTIN (09/16/2016 2:42 PM TUBE SPLICER) Prolactin 10.1 ng/mL [facility] ([facility]) Comment: Reference Range Females Non- 3.0-30.0 10.0-209.0 Postmenopausal 2.0-20.0 REPORT COMMENT: FASTING:NO Test Performed at: [employer] [place] [address] [place] [address] MATY HSIEH DO,MPH Blood specimen (specimen) BLOOD SPECIMEN / Unknown 09/16/2016 2:42 PM TUBE SPLICER 09/16/2016 2:42 PM TUBE SPLICER Yajaira Don MD LAB - CHEMISTRY [place] Performing Organization Address City/[facility] Co de Phone Number [facility] ([facility]) * PATHOLOGY/GENETICS HISTORICAL-ONBASE (09/16/2016) 09/16/2016 Yajaira Don MD LAB - CHEMISTRY [place] Performing Organization Address [facility] Co de Phone Number [address] * (ABNORMAL) PAP IMAGE-GUIDED LIQUID BASE W HPV (09/16/2016 12:00 AM TUBE SPLICER) Pap Image-Guided Liquid-Based with HPV Accession No: [id number] Specimen:Endocervi janusz ThinPrep Slides:1 SPECIMEN ADEQUACY: SATISFACTORY FOR EVALUATION - Endocervical / Transformation Zone Component Present INTERPRETATION: NEGATIVE FOR INTRAEPITHELIAL LESION OR MALIGNANCY - Reactive Cellular Changes NOTE(S): HPV DIRECT - HPV Result to Follow This specimen was evaluated by the ThinPrep Imaging System along with an additional manual rescreening by a catalog library assistant and/or pathologist Initial Evaluation performed by Adelfo BUNCH(ASC). Electronically signed 09/23/2016 Interpretation performed by Arthur Ramos MD. Electronically signed 09/26/2016 (A) [facility] ([place]) Endocervical 09/16/2016 09/21/2016 10:05 AM TUBE SPLICER Yajaira Don MD LAB - PATHOLOGY/CYTO LOGY ORDERABLES [facility] ([place]) * HCG URINE QUALITATIVE - POCT (IP) [facility] (06/18/2014) Test Urine neg [facility] Urine specimen (specimen) 06/18/2014 Josh Leyva MD LAB - POINT OF CARE ORDERABLES Performing Organization Address [facility]/ZIP Co de Phone Number [facility] * (ABNORMAL) HGB HCT PANEL (05/08/2014 6:42 AM CDT) Hemoglobin 10.4(L) 12.0 - 15.6 gm/dL 05/08/2014 7:01 AM CDT [facility] Hematocrit 30.5(L) 35.9 - 45.5 % 05/08/2014 7:01 AM CDT [facility] Blood BLOOD SPECIMEN / Unknown Lab Venipuncture / Unknown 05/08/2014 6:42 AM CDT 05/08/2014 6:48 AM CDT Vilma Espinoza MD LAB - HEMATOLOGY ORDERABLES Performing Organization Address City/[facility]/ZIP Co de Phone Number [facility] [address] [place] [address] * NEURAXIAL BLOCK (05/07/2014 4:22 AM CDT) [...] resultswithin the time period is included. Pathologist [facility] LDH 189 100 - 200 U/L 05/06/2014 5:39 PM CDT [facility] Comment: Blood BLOOD SPECIMEN / Unknown Venipuncture / Unknown 05/06/2014 5:07 PM CDT 05/06/2014 5:19 PM CDT Brittani Escoto MD LAB - CHEMISTRY [place] [facility] [address] [place] [address] * GLUCOSE PROTEIN KETONE URINE - POINT [...] OF C ARE ORDERABLES Performing Organization Address [facility] de Phone Number [facility] [address] [place] [address], [facility] * LAB RESULTS ORDER (04/25/2014 11:22 PM CDT) Only the most recent of3 resultswithin the time period is included. Provider Unknown LAB - THERAPEUTIC DR COKER MONITORING ORDERABLES * (ABNORMAL) PROTEIN URINE TIMED QUANTITATIVE (04/23/2014 4:45 PM CDT) Only the most recent of2 resultswithin the time period is included. Volume 24 Hour Urine 910 mL 04/23/2014 6:19 PM CDT [facility] Collection Time Hours 24 hrs 04/23/2014 6:19 PM CDT [facility] Protein 24 Hour Urine 292(H) 42 - 225 mg/24hr 04/23/2014 6:19 PM CDT [facility] Protein Urine 32.1 mg/dL 04/23/2014 6:19 PM CDT [facility] Urine TIMED URINE SPECIMEN / Unknown Collection / Unknown 04/23/2014 4:45 PM CDT 04/23/2014 6:01 PM CDT Eric Terrell MD LAB - URINE CHEMISTR Y ORDERABLES Performing Organization Address City/[facility] Co de Phone Number [facility] [address] [place] [address] * CREATININE URINE TIMED (04/23/2014 4:45 PM CDT) Only the most recent of2 resultswithin the time period is included. Volume 24 Hour Urine 910 mL 04/23/2014 6:19 PM CDT [facility] Collection Time Hours 24 hrs 04/23/2014 6:19 PM CDT [facility] Creatinine Urine 191.12 mg/dL 04/23/2014 6:19 PM CDT [facility] Creatinine 24 Hour Urine 1,739 800 - 1,800 mg/24hr 04/23/2014 6:19 PM CDT [facility] Urine TIMED URINE SPECIMEN / Unknown Collection / Unknown 04/23/2014 4:45 PM CDT 04/23/2014 6:01 PM CDT Eric Terrell MD LAB - URINE CHEMISTR Y ORDERABLES [facility] [address] [place] [address] * SONOGRAM - COMPLETE (04/23/2014 1:51 PM CDT) Anatomical Region Laterality Modality Other 04/23/2014 1:51 PM CDT Narrative 04/23/2014 4:03 PM CDT [facility] PHONE: FAX: Pat. Name: ARIANNA GOODE Pat. No: [id number] Study Date: 04/23/2014 1:51pm , Age: 11 1985, 28 LMP: Unknown GA Selected: 34w2d (From Known E) GONZALO: 06/02/2014 Referring MD: DAMIEN GANDHI MD Faculty Physician: Dianne Roland RDMS Hist/Ind: Chronic Hypertension Pre [...] <Electronic Signature> 04/23/2014 04:04pm Damien Gandhi MD [facility] ORDERABLES * HIV-1 HIV-2 ANTIBODIES W RFLX REFLEXED (12/02/2013 8:30 AM CDT) HIV 1/2 EIA Antibody NON-REACT CHRISTIAN NON-REACT CHRISTIAN [employer] ([facility]) Comment: A Nonreactive HIV-1/2 antibody result does not exclude HIV infection since the time frame for seroconversion is variable. If acute HIV infection is suspected, antibody retesting and nucleic acid amplification (HIV DNA/RNA) testing is recommended. Effective January 13, 2014, [employer] will discontinue the HIV-1 Western Blot confirmation and replace it with an HIV-1/HIV-2 differentiation assay. This assay exhibits increased sensitivity over the HIV-1 Western Blot test and simultaneously differentiates HIV-1 antibody reactivity from HIV-2 antibody reactivity. Test Performed at: [employer] [facility] [address] [address] [place] [address] MATY HSIEH DO,MPH 12/02/2013 8:30 AM CDT 12/02/2013 8:31 AM CDT Historical Provider LAB - CHEMISTRY O RDERABLES [facility] ([facility]) * GROSS + MICRO EXAM (07/31/2009 12:00 PM TUBE SPLICER) Only the most recent of2 resultswithin the [...] cut surfaces reveal no intraparenchymal gross abnormalities. Yard Switcher sections of the specimen are submitted in [...] Chorioamniotic membranes with no pathologic changes GM/na Recovery Unit Operator na Pathologist Chiqui Nielsen M.D. [employer]. 08/03/2009 1546 <1> CPT code 96466 MISCELLANEOUS SAMPLES / Unknown 07/31/2009 12:00 PM TUBE SPLICER 08/01/2009 7:14 AM TUBE SPLICER Historical Provider LAB - PATHOLOGY/C YTOLOGY ORDERABLES * CULTURE ANAEROBE (07/30/2009 5:50 PM TUBE SPLICER) Report [facility] Comment: Final - CULTURE No Anaerobes isolated AMNIOTIC FLUID SPECIMEN / Unknown 07/30/2009 5:50 PM TUBE SPLICER 07/30/2009 6:26 PM TUBE SPLICER Narrative [facility] - 08/04/2009 3:21 PM TUBE SPLICER Amniotic fluid Miranda Miner MD LAB - MICROBIOLOGY O RDERABLES Performing Organization Address [facility] Co de Phone Number [facility] [address] [place] [phone] * CULTURE FLUID (07/30/2009 5:50 PM TUBE SPLICER) Report [facility] Comment: Final - ACCN COMMENT Amniotic fluid GRAM STAIN Moderate Epithelial cells Moderate debris No WBC's seen No organisms seen CULTURE No growth. AMNIOTIC FLUID SPECIMEN / Unknown 07/30/2009 5:50 PM TUBE SPLICER 07/30/2009 6:25 PM TUBE SPLICER Narrative [facility] - 08/02/2009 8:21 AM TUBE SPLICER Amniotic fluid Miranda Miner MD LAB - MICROBIOLOGY O RDERABLES Performing Organization Address [facility] Co de Phone Number [facility] [address] [place] [phone] * GLUCOSE FLUID (07/30/2009 5:50 PM TUBE SPLICER) Glucose Fluid 41 mg/dl [facility] AMNIOTIC FLUID SPECIMEN / Unknown 07/30/2009 5:50 PM TUBE SPLICER 07/30/2009 6:20 PM TUBE SPLICER Miranda Miner MD LAB - BODY FLUID ORD ERABLES Performing Organization Address City/[facility] Co de Phone Number [facility] [address] [place] [address] * LS RATIO FLUID (07/30/2009 5:50 PM TUBE SPLICER) L/S Ratio 1.5 SEE BELOW [facility] Comment: Immature <=1.5 Transitional 1.6-1.9 Mature >=2.0 Color Fluid Pale Yellow [facility] Character Amnio Slightly Hazy [facility] Gestational Age 34 1/7 [facility] Volume Amnio 8 ml [facility] Interpretation L/S Ratio [facility] Comment: PLEASE NOTE - L/S Ratio [...] FLUID SPECIMEN / Unknown 07/30/2009 5:50 PM TUBE SPLICER 07/30/2009 6:20 PM TUBE SPLICER Miranda Miner MD LAB - BODY FLUID ORD ERABLES Performing Organization Address [facility] Co de Phone Number [facility] [address] [place] [phone] * LUNG MATURITY (07/30/2009 5:50 PM TUBE SPLICER) FLM 14.67 SEE BELOW mg/g [facility] Comment: See Interpretation for Normals Color Fluid Pale Yellow [facility] Character Amnio Slightly Hazy [facility] Gestational Age edc 09/09/09, GA 34 1/7, [facility] Volume Amnio 8 ml [facility] Interpretation [facility] Comment: FLM Immature ......... <= 39 mg/g Mature ......... >= 55 mg/g Results between 40 and 54 cannot be declared mature or immature and should be evaluated with caution. AMNIOTIC FLUID SPECIMEN / Unknown 07/30/2009 5:50 PM TUBE SPLICER 07/30/2009 6:20 PM TUBE SPLICER Miranda Miner MD LAB - BODY FLUID ORD ERABLES Performing Organization Address [facility] de Phone Number [facility] [address] [place] [phone] * DRUG SCREEN TRIAGE PANEL (07/29/2009 11:30 PM TUBE SPLICER) Phencyclidine Screen Urine Negative Negative ng/ml [facility] Benzodiazepines Screen Urine Negative Negative ng/ml [facility] Cocaine Screen Urine Negative Negative ng/ml [facility] Amphetamines Screen Urine Negative Negative ng/ml [facility] Cannabinoids Screen Urine Negative Negative ng/ml [facility] Opiate Screen Urine Negative Negative ng/ml [facility] Barbiturates Screen Urine Negative Negative ng/ml [facility] URINE / Unknown 07/29/2009 1 1:30 PM TUBE SPLICER 07/30/2009 1:13 AM TUBE SPLICER Eric Kessler MD LAB - URINE CHEMISTR Y ORDERABLES Performing Organization Address [facility] Phone Number [facility] [address] [place] [address] * URINALYSIS ROUTINE AUTO (07/29/2009 11:00 PM TUBE SPLICER) Source Clean Catch [facility] Color UA [place] [facility] Character UA Cloudy [facility] Glucose UA NEGATIVE NEGATIVE mg/dl [facility] Bilirubin UA NEGATIVE NEGATIVE [facility] Ketone UA >=80 NEGATIVE mg/dl [facility] Specific [place] UA >=1.030 1.003 - 1.030 [facility] Blood UA LARGE NEGATIVE [facility] pH UA 5.5 5.0 - 9.0 [facility] Protein UA TRACE NEGATIVE-TR MICHELLE mg/dl [facility] Urobilinogen UA 0.2 0.2 - 1.0 Jill Units/dl [facility] Nitrite UA NEGATIVE NEGATIVE [facility] Leukocyte UA NEGATIVE NEGATIVE [facility] RBC UA Field Packed 0 - 2 HPF [facility] URINE SPECIMEN OBTAINED BY CLEAN CATCH PROCEDURE / Unknown 07/29/2009 11:00 PM TUBE SPLICER 07/30/2009 1:13 AM TUBE SPLICER Eric Kessler MD LAB - URINALYSIS ORD ERABLES Performing Organization Address [facility] Co de Phone Number [facility] [address] [place] [address] * CHLAMYDIA + GC DNA PROBE AMPLIFIED (07/29/2009 7:00 PM TUBE SPLICER) Chlamydia trachomatis Amplified Probe NEGATIVE NEGATIVE [facility] GC Amplified Probe NEGATIVE NEGATIVE [facility] Comment Amplified Probe [facility] Comment: Results based on detection/no detection of ribosomal RNA by amplified method. ENTIRE ENDOCERVIX / Unknown 07/29/2009 7:00 PM TUBE SPLICER 07/29/2009 8:36 PM TUBE SPLICER Eric Kessler MD LAB - MICROBIOLOGY O RDERABLES [facility] [address] [place] [address] Care Teams Transit Operations Supervisor Relationship Specialty Start Date End Date Kathryn Redmond MD [address] [place] [address] [place] [id number] PCP - General 04/04/18
--- NOTE | 2024-11-21 10:07 | ECG_ITS ---
Test Date: 2024-11-21 10:36:02 Measurements Intervals [place] Rate: 54 P: 10 IA: 151 QRS: 15 QRSD: 94 T: 16 QT: 457 QTc: 434 Interpretive Statements SINUS BRADYCARDIA No previous ECG available for comparison Electronically Signed On 11-21-2024 14:04:47 CASHIER SUPERVISOR by Terrell Cooper M.D.
[2024-11-21 10:28] LABS: Basophils Absolute Auto 0.1 K/mm3 (0.0-0.1); Basophils Percent Auto 1.1 % (0.2-1.2); Eosinophils Absolute Auto 0.3 K/mm3 (0-0.3); Eosinophils Percent Auto 5.4 % (0-4.4); Hemoglobin 11.9 g/dL (12.0-15.0); Immature Granulocyte Absolute 0.03 K/mm3 (0.00-0.031); Immature Granulocyte Percent A 0.5 % (0-0.5); Lymphocytes Absolute Auto 1.99 K/mm3 (0.9-3.2); Lymphocytes Percent Auto 31.3 % (18.3-44.2); Mean Corpuscular Hemoglobin 29.6 pg (26-34); Mean Corpuscular Volume 87.1 fl (80-100); Mean Platelet Volume 9.8 fl (7.4-10.4); Monocytes Absolute Auto 0.4 K/mm3 (0.1-0.6); Monocytes Percent Auto 5.8 % (2.6-8.5); Neutrophils Absolute Auto 3.6 K/mm3 (1.3-6.7); Neutrophils Percent Auto 55.9 % (45.5-73.1); Platelet Count Result 270 k/mm3 (150-375); Red Blood Count 4.02 M/mm3 (4.2-5.4); Red Cell Distribution Width 12.5 % (11.5-14.5); White Blood Count 6.4 K/mm3 (4.5-10.0)
[2024-11-21 10:33] VITALS: BP 181/94; PULSE 77; RESP 20; O2SAT 100
[2024-11-21 10:34] LABS: Add Urine Microscopic? YES; Appearance Urine Cloudy (Clear); Bacteria Urine Rare /hpf; Bilirubin Urine Negative (Negative); Blood Urine 2+ (Negative); Color Urine Yellow (Yellow); Glucose Urine UA Negative (Negative); Ketones Urine Negative (Negative); Leukocyte Esterase Ur 1+ LEU/UL (Negative); Nitrate Urine Negative (Negative); Non Pathogenic Casts 0-2; Protein Urine Trace mg/dL (Negative); Squamous Epithelial Cell Urine Few /hpf (Few)
[2024-11-21] MEDS: hydrALAZINE HCL 20 MG/ML VIAL 10 MG IV PUSH (10:40)
[2024-11-21 10:42] LABS: Alanine Aminotransferase 20 U/L (6-35); Alkaline Phosphatase 57 U/L (38-126); Anion Gap 7 mmol/L (4-12); Aspartate Amino Transferase 30 U/L (14-36); Bilirubin,Total 0.5 mg/dL (0.2-1.3); Blood Urea Nitrogen 7 mg/dL (7-17); Calcium 8.9 mg/dL (8.4-10.2); Carbon Dioxide 27 mmol/L (22-30); Chloride 105 mmol/L (98-107); Estimated CRCL calculation 114 ml/min; Estimated Glomerular Filt Rate > 60; Glucose 92 mg/dL (65-110); Potassium 3.8 mmol/L (3.4-5.0); Sodium 139 mmol/L (137-145)
[2024-11-21 10:53] LABS: Prothrombin Time 13.3 Seconds (11.1-14.7)
[2024-11-21 10:54] LABS: Partial Thromboplastin Time 31.5 Seconds (22.3-36.8)
--- NOTE | 2024-11-21 11:41 | ED_ITS ---
HPI - General Adult General Chief complaint: Recheck/Abnormal Lab/Rx Stated complaint: HTN, H/A Time Seen by Provider: 11/21/24 08:58 History of Present Illness HPI narrative: 39-year-old female presents emergency department for evaluation for elevated blood pressure. Patient had initially been nifedipine for her blood pressure but was having multiple issues with adverse reactions and poor blood pressure control so patient was ultimately switched to hydrochlorothiazide. Patient did start seeing a new practitioner and was switched from hydrochlorothiazide to losartan approximately 2 weeks ago. Patient has not been tolerant was losartan and on Monday was switched to a low dose of amlodipine. Patient reports she is still having headache and elevated blood pressure with the 2.5 mg daily amlodipine. Related Data Home Medications ?Medication ?Instructions ?Recorded ?Confirmed ?Last Taken ?Type albuterol sulfate 90 mcg/actuation 1 puff inhalation Q4H PRN 11/08/24 11/08/24 Unknown History aerosol inhaler (Ventolin HFA) hydrochlorothiazide 25 mg tablet 25 mg PO DAILY 11/08/24 11/08/24 Unknown History Allergies Allergy/AdvReac Type Severity Reaction Status Date / Time Sulfa (Sulfonamide Allergy Intermediate HIVES Verified 11/21/24 08:52 Antibiotics) Review of Systems 2 Review of Systems: All systems reviewed & are unremarkable except as noted in HPI and below PMFSH Past Medical History Medical History (Updated 11/21/24 @ 11:49 by Goyo Mckay MD) Depression BMI 37.0-37.9, adult Sleep apnea hx of, not currently using CPAP HTN (hypertension) Anxiety Surgical History Surgical History (Updated 11/08/24 @ 09:46 by Stanislaw Koch CMA) H/O gastric sleeve 2020 Family History Family History (Updated 11/08/24 @ 10:04 by Stanislaw Koch CMA) Father Hypertension Cancer Lung cancer Grandparent Diabetes mellitus Breast cancer Hypertension Grandparent Hypertension Carcinoma of colon Grandparent No problems noted. Social History Social History (Updated 11/08/24 @ 09:48 by Stanislaw Koch CMA) Smoking status: Never smoker Alcohol intake: never Substance use: never Exam 2 Narrative: APPEARANCE: Well appearing, no pain, no distress, well-nourished. HEAD: normocephalic, atraumatic. EYES: PERRLA/EOMI, conjunctivae clear. NOSE: Normal no drainage EARS:TMS clear with good light reflex. THROAT: Pharynx clear, no exudate. NECK: Supple. No adenopathy, no masses. RESPIRATORY: Airway patent, respirations nonlabored. Clear to auscultation bilaterally, no rales, rhonchi, wheezing. CARDIOVASCULAR: Regular rate and rhythm without murmurs rubs or gallops. ABDOMINAL: Soft, nontender, nondistended, normal bowel sounds MUSCULOSKELETAL: Moves all extremities. Strength/ROM intact, No edema, No calf tenderness. NEURO: Alert. Cranial nerves II through XII intact. Grossly intact SKIN: Warm, dry. Normal Color Course Vital Signs Vital signs: Vital Signs Temperature 97.8 F 11/21/24 08:44 Pulse Rate 69 11/21/24 08:44 Respiratory Rate 12 11/21/24 08:44 Blood Pressure 162/90 H 11/21/24 08:44 Pulse Oximetry 100 11/21/24 08:44 Oxygen Delivery Room Air 11/21/24 08:44 Temperature 97.8 F 11/21/24 08:44 Pulse Rate 72 11/21/24 12:59 Respiratory Rate 15 11/21/24 12:59 Blood Pressure 143/94 H 11/21/24 12:59 Pulse Oximetry 100 11/21/24 12:59 Oxygen Delivery Room Air 11/21/24 08:44 Medical Decision Making MDM Narrative Medical decision making narrative: 39-year-old female presents to the emergency department for hypertension. Patient is currently afebrile with no leukocytosis stable hemoglobin. Patient has an INR of 1.0. Patient has normal kidney function. Patient denies any chest pain with this. Patient did have some leukocytosis and white blood cells but also had few squamous cells and rare bacteria. Urine culture was ordered. Low concern for urinary tract infection. Head CT was ordered and showed no acute brain abnormality. UA did show an abnormal UA and a urine culture was ordered, patient denies any urinary symptoms. Patient primary care physician was updated the results of the workup and he was comfortable the plan to increase the patient's amlodipine to 5 mg. Patient confirmed that she is no longer taking hydrochlorothiazide. Patient was comfortable the plan to increase her amlodipine and her primary care physician is calling in this prescription for her. Patient was advised that her blood pressures may still continue to be elevated. Differential Diagnosis Differential Diagnosis: Cervical hematoma, subarachnoid hemorrhage, acute kidney injury, UTI, hypertension Vital Signs Vital Signs: Vital Signs Temperature 97.8 F 11/21/24 08:44 Pulse Rate 69 11/21/24 08:44 Respiratory Rate 12 11/21/24 08:44 Blood Pressure 162/90 H 11/21/24 08:44 Pulse Oximetry 100 11/21/24 08:44 Oxygen Delivery Room Air 11/21/24 08:44 Temperature 97.8 F 11/21/24 08:44 Pulse Rate 72 11/21/24 12:59 Respiratory Rate 15 11/21/24 12:59 Blood Pressure 143/94 H 11/21/24 12:59 Pulse Oximetry 100 11/21/24 12:59 Oxygen Delivery Room Air 11/21/24 08:44 Lab Data Lab results reviewed: Yes I reviewed the patient's lab results. 11/21/24 10:17 11/21/24 10:17 Labs: Lab Results 11/21/24 Range/Units 10:17 WBC 6.4 (4.5-10.0) K/mm3 RBC 4.02 L (4.2-5.4) M/mm3 Hgb 11.9 L (12.0-15.0) g/dL Hct 35.0 L (37.0-47.0) % MCV 87.1 (80-100) fl MCH 29.6 (26-34) pg MCHC 34.0 (32-36) g/dl RDW 12.5 (11.5-14.5) % Plt Count 270 (150-375) k/mm3 MPV 9.8 (7.4-10.4) fl Immature Gran % (Auto) 0.5 (0-0.5) % Neut % (Auto) 55.9 (45.5-73.1) % Lymph % (Auto) 31.3 (18.3-44.2) % [place] % (Auto) 5.8 (2.6-8.5) % Eos % (Auto) 5.4 H (0-4.4) % Baso % (Auto) 1.1 (0.2-1.2) % Lymph # (Auto) 1.99 (0.9-3.2) K/mm3 [place] # (Auto) 0.4 (0.1-0.6) K/mm3 Eos # (Auto) 0.3 (0-0.3) K/mm3 Baso # (Auto) 0.1 (0.0-0.1) K/mm3 Abs Immat Gran (auto) 0.03 (0.00-0.031) K/mm3 Absolute Neuts (auto) 3.6 (1.3-6.7) K/mm3 Absolute Nucleated RBC 0.000 (0.0-0.012) K/mm3 Nucleated RBC % 0.0 (0.0-0.2) % PT 13.3 (11.1-14.7) Seconds INR 1.0 APTT 31.5 (22.3-36.8) Seconds Sodium 139 (137-145) mmol/L Potassium 3.8 (3.4-5.0) mmol/L Chloride 105 (98-107) mmol/L Carbon Dioxide 27 (22-30) mmol/L Anion Gap 7 (4-12) mmol/L BUN 7 (7-17) mg/dL Creatinine 0.64 L (0.7-1.0) mg/dL Estim Creat Clear Calc 114 ml/min Estimated GFR > 60 (59 - ) Glucose 92 (65-110) mg/dL Calcium 8.9 (8.4-10.2) mg/dL Total Bilirubin 0.5 (0.2-1.3) mg/dL AST 30 (14-36) U/L ALT 20 (6-35) U/L Alkaline Phosphatase 57 (38-126) U/L Total Protein 7.0 (6.3-8.2) g/dL Albumin 4.0 (3.5-5.1) g/dL Urine Color Yellow (Yellow) Urine Appearance Cloudy H (Clear) Urine pH 8.0 (5.0-9.0) Ur Specific [address] 1.020 (1.001-1.035) Urine Protein Trace (Negative) mg/dL Urine Glucose (UA) Negative (Negative) mg/dL Urine Ketones Negative (Negative) mg/dL Ur Blood (Man) 2+ H (Negative) Urine Nitrate Negative (Negative) Urine Bilirubin Negative (Negative) Urine Urobilinogen 1.0 (<2.0) mg/dL Leukocyte Esterase Rfl 1+ H (Negative) AILEEN/UL Urine RBC 3-5 H (0-2) /hpf Urine WBC 11-20 H (0-3) /hpf Ur Squamous Epith Cells Few (Few) /hpf Urine Bacteria Rare /hpf Urine Casts 0-2 Imaging Data Radiologist's impression: Impressions Head CT 11/21/24 10:40 IMPRESSION: 1. Normal brain. Discharge Plan Discharge Clinical Impression: Hypertension Patient Disposition: Home, Self-Care Condition: Stable Instructions: Antibiotic Form, Hypertension (ED) Additional Instructions: Your primary care physician is increasing your amlodipine dose to 5 mg daily. It may take a few days for your blood pressure to normalize. Have close follow- up with your primary care physician. Your urine sample showed possible contamination versus infection. Urine culture was ordered and you may receive a call in the next 24-48 hours to start antibiotic if the culture grows anything concerning for a urinary tract infection. Patient Language: Swedish Prescriptions: No Action hydrochlorothiazide 25 mg tablet 25 mg PO DAILY albuterol sulfate [Ventolin HFA] 90 mcg/actuation HFA aerosol inhaler 1 puff inhalation Q4H PRN sertraline 50 mg tablet 50 mg PO DAILY Qty: 30 5RF buspirone 5 mg tablet See Rx Instructions PO BID Qty: 100 0RF Rx Instructions: start 1 tab 2x/day and increase by 1 tab every 3 days to max dose of 3 tabs 2x/day. call for refill amlodipine [Norvasc] 5 mg tablet 5 mg PO DAILY Qty: 30 11RF Follow-up/Referrals: Bethanie Thrasher NP [Primary Care Provider] -
[2024-11-21 11:49] VITALS: BP 149/104; PULSE 76; RESP 15; O2SAT 100
[2024-11-21] MEDS: KETOROLAC 15 MG/ML VIAL (*BKC) IV PUSH (11:54)
[2024-11-21 12:59] VITALS: BP 143/94; PULSE 72; RESP 15; O2SAT 100
== END 2024-11-21 13:02 | disposition home or self-care (01) ==
PROVIDERS: Emergency Provider Emergency Medicine; PCP Nurse Practitioner Family
DX: I10 Essential (primary) hypertension (principal); G47.30 Sleep apnea, unspecified; F41.9 Anxiety disorder, unspecified; Z98.84 Bariatric surgery status; Z79.899 Other long term (current) drug therapy
CPT/HCPCS: 36415; 70450; 80053; 81001; 85025; 85610; 85730; 87086; 93005; 96374; 96375; 99284; J0360; J1885